=== PATIENT | male | born 1970 | race Caucasian/White ===

== ENCOUNTER 2022-03-07 18:02 | Outpatient (CLI) | payer MEDICARE, OTHER, SELFPAY ==
[2022-03-07 19:16] LABS: Basophils % 0.4 %; Eosinophils % 0.4 %; Hematocrit 41.4 % (42.0-52.0); Hemoglobin 13.2 g/dL (11.7-16.6); Lymphocytes # 1.4 10^3/uL (0.8-4.8); Lymphocytes % 13.9 %; Mean Corpuscular HGB Conc 31.9 g/dL (30.0-36.0); Mean Corpuscular Hemoglobin 31.4 pg (28.0-34.0); Mean Corpuscular Volume 98.3 fl (80-94); Monocytes # 1.1 10^3/uL (0.2-0.9); Monocytes % 10.8 %; Neutrophils # 7.55 10^3/uL (1.8-7.7); Neutrophils % 73.7 %; Nucleated Red Blood Cells % 0 %; Platelet Count 238 10^3/cmm (130-400); Red Blood Count 4.21 10^6/uL (4.1-5.3); White Blood Count 10.2 10^3/uL (4.0-10.0)
[2022-03-07 19:27] LABS: INR 1.26 (0.8-1.2)
[2022-03-07 19:57] LABS: Alanine Aminotransferase 22 U/L (0-41); Albumin Level 2.9 g/dL (3.5-5.2); Alkaline Phosphatase 123 IU/L (40-130); Anion Gap 17.4 (5-19); Aspartate Amino Transferase 25 U/L (0-40); Blood Urea Nitrogen 14 mg/dL (6-20); Calcium 7.9 mg/dL (8.5-10.5); Carbon Dioxide 25 mmol/L (22-29); Chloride 99 mmol/L (98-107); Globulin 3.9 g/dL (1.3-4.6); Glomerular Filtration Rate 119.4 mL/min (90-130); Glucose 152 mg/dL (65-115); Osmolality Calculated 289 mOsm/kg (285-295); Potassium 3.4 mmol/L (3.5-5.1); Sodium 138 mmol/L (136-145); Total Bilirubin 0.2 mg/dL (0.15-1.2); Total Protein 6.8 g/dL (6.6-8.7)
== END 2022-03-07 18:03 | disposition home or self-care (01) ==
LOC: LAB 18:07
PROVIDERS: Family Provider Family Medicine; Visit Provider Family Medicine
DX: I82.402 Acute embolism and thrombosis of unspecified deep veins of left lower extremity (principal)
CPT/HCPCS: 80053; 85025; 85610

== ENCOUNTER 2022-03-28 04:57 | Outpatient (CLI) | payer MEDICARE, SELFPAY ==
[2022-03-28 05:57] LABS: Phenytoin Dilantin 3.5 ug/mL (10-20)
== END 2022-03-28 04:58 | disposition home or self-care (01) ==
PROVIDERS: Family Provider Family Medicine; Visit Provider Family Medicine
DX: Z79.899 Other long term (current) drug therapy (principal)
CPT/HCPCS: 80185

== ENCOUNTER 2022-05-28 12:16 | Outpatient (CLI) | payer MEDICARE, SELFPAY ==
[2022-05-28 13:11] LABS: INR 1.72 (0.8-1.2)
== END 2022-05-28 12:17 | disposition home or self-care (01) ==
PROVIDERS: Visit Provider Family Medicine
DX: I82.491 Acute embolism and thrombosis of other specified deep vein of right lower extremity (principal)
CPT/HCPCS: 85610

== ENCOUNTER 2022-06-30 12:52 | Inpatient (IN) | payer MEDICARE, MEDICAID, SELFPAY ==
[2022-06-30] VITALS (10 sets, daily range): BP systolic 98–99; BP diastolic 64–80; PULSE 75–85; RESP 13–28; TEMP 37–37.1; O2SAT 93–97; BMI 33.0
--- NOTE | 2022-06-30 13:11 | XRR_ITS ---
PROCEDURE INFORMATION: Exam: XR Chest Exam date and time: 06/30/2022 1:57 PM Age: 51 years old Clinical indication: Dyspnea; Prior surgery; Surgery type: Open heart; PT unable to communicate HX; Additional info: Dyspnea/cough TECHNIQUE: Imaging protocol: Radiologic exam of the chest. Views: 1 view. COMPARISON: CT abdomen pelvis w con* [id number] 08/27/2019 1:54 PM FINDINGS: Lungs: Hazy bilateral pulmonary opacities. Pleural spaces: Blunting of the costophrenic angles is suggestive of small pleural effusions. Heart/Mediastinum: Cardiomegaly. Bones/joints: There are posterior sternotomy changes and postoperative changes overlying the mediastinum. Superior most sternal suture is discontinuous. XR/XR chest 1V portable [id number] IMPRESSION: 1. Blunting of the costophrenic angles is suggestive of small pleural effusions. In combination with cardiomegaly, findings are concerning for congestive heart failure. 2. There are hazy bilateral pulmonary opacities. Differential includes pulmonary edema and/or pneumonia.
[2022-06-30 13:19] LABS: Basophils % 0.3 %; Eosinophils # 0.1 10^3/uL (0.0-0.8); Eosinophils % 0.6 %; Hemoglobin 13.9 g/dL (11.7-16.6); Lymphocytes # 0.7 10^3/uL (0.8-4.8); Lymphocytes % 6.7 %; Mean Corpuscular HGB Conc 32.3 g/dL (30.0-36.0); Mean Corpuscular Hemoglobin 33.2 pg (28.0-34.0); Mean Corpuscular Volume 102.6 fl (80-94); Mean Platelet Volume 9.6 fL (7.4-10.4); Monocytes # 0.8 10^3/uL (0.2-0.9); Monocytes % 8.2 %; Neutrophils # 8.45 10^3/uL (1.8-7.7); Neutrophils % 83.6 %; Nucleated Red Blood Cells % 0 %; Platelet Count 260 10^3/cmm (130-400); Red Blood Count 4.19 10^6/uL (4.1-5.3); Red Cell Distribution Width 14.8 % (12.1-15.1); White Blood Count 10.1 10^3/uL (4.0-10.0)
--- NOTE | 2022-06-30 13:46 | ED_ITS ---
HPI - General Adult General: Chief complaint: General Medical Stated complaint: INCREASING WEAKNESS AND LETHARGY Time Seen by Provider: 06/30/22 13:00 Source: family Mode of arrival: EMS History of Present Illness: 51-year-old male with a history of Down's syndrome and previous mitral valve prolapse with a subsequent mitral valve prosthesis several years ago. Over the last 10 months. He presents today with respiratory distress he is nonresponsive. Nonresponsive portion is been something that is ongoing. Not requiring more oxygen than he had been. He lives at the half-way. Coarse breath sounds and is very lethargic. Onset (ago): day(s) Severity: moderate Relieving factors: none Exacerbating factors: none Associated symptoms: Reports short of breath Treatments prior to arrival: other (Oxygen) Review of Systems General: Reports: ROS unobtainable due to mental status PFS ED PFSH: Medical History Dementia Down syndrome H/O deep venous thrombosis Heart failure History of stroke Non-verbal learning disorder Normal pressure hydrocephalus Seizures Surgical History H/O aortic valve replacement with porcine valve History of coronary artery bypass graft x 1 Physical Exam HENMT: COMMON NORMALS: atraumatic HEAD & SCALP: atraumatic Resp: AUSCULTATION: crackles, rhonchi and wheezes Cardio: COMMON NORMALS: regular rate, regular rhythm and No murmurs present (Cardio) RATE: regular rate RHYTHM: regular rhythm GI: COMMON NORMALS: Soft to palpation and No hepatosplenomegaly present AUSCULTATION: Yes normoactive bowel sounds PALPATION: Yes Soft to palpation, No Tenderness to palpation present (GI), No Guarding due to palpation present (GI) and Yes No hepatosplenomegaly present Extremity: GENERAL: Yes edema Course Vital Signs: Vital signs: Vital Signs Temperature 103.6 F H 07/08/22 20:00 Pulse Rate 0 L 07/08/22 23:00 Respiratory Rate 0 L 07/08/22 23:00 Blood Pressure 95/41 07/08/22 23:00 Pulse Oximetry 83 L 07/08/22 22:00 Oxygen Delivery Me thod 07/08/22 16:00 Oxygen Flow Rate 10 07/08/22 16:00 Fraction of Inspir ed Oxygen 45 07/03/22 11:38 MDM - General Adult Medical Decision Making Suspect patient has aspiration pneumonia on top of worsening congestive heart failure. At this point I think his prognosis is very poor and herminia discussion of the family. They would like us to try to initiate some basic interventions to see if he improves. However if he does not begin to show improvement they are willing to reconsider and look at changing him to a DO NOT RESUSCITATE. Discussed with hospitalist orders written Medical Records I reviewed the patient's medical records. Lab Data I reviewed the patient's lab results. : 07/05/22 04:30 07/08/22 04:05 Radiology Impressions Chest/Abdomen/Pelvis CT 07/01/22 12:05 IMPRESSION: 1. Bilateral pneumonia. 2. There is mucous in the trachea and right mainstem bronchus. IMPRESSION: 1. The bladder wall is thickened. This is nonspecific and may represent bladder outlet obstruction, inflammation or infection. Neoplastic process is included in the differential. 2. Colonic constipation is present. Chest X-Ray 07/04/22 12:01 IMPRESSION: 1. Diffuse increasing consolidation throughout the LEFT lung consistent with pneumonia. 2. Cardiomegaly. 3. Very small bilateral pleural effusions. Laboratory Results WBC 10.1 10^3/uL (4.0-10.0) H 06/30/22 13:15 RBC 4.19 10^6/uL (4.1-5.3) 06/30/22 13:15 Hgb 13.9 g/dL (11.7-16.6) 06/30/22 13:15 Hct 43.0 % (42.0-52.0) 06/30/22 13:15 MCV 102.6 fl (80-94) H 06/30/22 13:15 MCH 33.2 pg (28.0-34.0) 06/30/22 13:15 MCHC 32.3 g/dL (30.0-36.0) 06/30/22 13:15 RDW 14.8 % (12.1-15.1) 06/30/22 13:15 Plt Count 260 10^3/cmm (130-400) 06/30/22 13:15 MPV 9.6 fL (7.4-10.4) 06/30/22 13:15 Neut % (Auto) 83.6 % 06/30/22 13:15 Lymph % (Auto) 6.7 % 06/30/22 13:15 [place] % (Auto) 8.2 % 06/30/22 13:15 Eos % (Auto) 0.6 % 06/30/22 13:15 Baso % (Auto) 0.3 % 06/30/22 13:15 Neut # (Auto) 8.45 10^3/uL (1.8-7.7) H 06/30/22 13:15 Lymph # (Auto) 0.7 10^3/uL (0.8-4.8) L 06/30/22 13:15 [place] # (Auto) 0.8 10^3/uL (0.2-0.9) 06/30/22 13:15 Eos # (Auto) 0.1 10^3/uL (0.0-0.8) 06/30/22 13:15 Baso # (Auto) 0.0 10^3/uL (0.0-0.1) 06/30/22 13:15 Nucleated RBC % (auto) 0 % 06/30/22 13:15 Nucleated RBCs # 0.0 /100WBC 06/30/22 13:15 PT 31.50 SECONDS (12.1-14.9) H 06/30/22 13:15 INR 3.01 (0.8-1.2) H 06/30/22 13:15 Sodium 140 mmol/L (136-145) 06/30/22 13:15 Potassium 3.7 mmol/L (3.5-5.1) 06/30/22 13:15 Chloride 100 mmol/L (98-107) 06/30/22 13:15 Carbon Dioxide 28 mmol/L (22-29) 06/30/22 13:15 Anion Gap 15.7 (5-19) 06/30/22 13:15 BUN 8 mg/dL (6-20) 06/30/22 13:15 Creatinine 0.7 mg/dL (0.7-1.2) 06/30/22 13:15 GFR Calculation 119.4 mL/min (90-130) 06/30/22 13:15 Glucose 106 mg/dL (65-115) 06/30/22 13:15 Calculated Osmolality 289 mOsm/kg (285-295) 06/30/22 13:15 Calcium 8.5 mg/dL (8.5-10.5) 06/30/22 13:15 Total Bilirubin 0.3 mg/dL (0.15-1.2) 06/30/22 13:15 AST 15 U/L (0-40) 06/30/22 13:15 ALT 11 U/L (0-41) 06/30/22 13:15 Alkaline Phosphatase 96 U/L (40-130) 06/30/22 13:15 NT-Pro-B Natriuret Pep 2092 pg/mL (0-125) H 06/30/22 13:15 Total Protein 6.7 g/dL (6.6-8.7) 06/30/22 13:15 Albumin 2.9 g/dL (3.5-5.2) L 06/30/22 13:15 Globulin 3.8 g/dL (1.3-4.6) 06/30/22 13:15 TSH 4.07 uIU/mL (0.27-4.20) 06/30/22 13:15 Urine Color Yellow (Yellow) 06/30/22 13:58 Urine Appearance Clear (CLEAR) 06/30/22 13:58 Urine pH 5 (5-7) 06/30/22 13:58 Ur Specific [place] 1.015 (1.005-1.030) 06/30/22 13:58 Urine Protein Neg (Negative) 06/30/22 13:58 Urine Glucose (UA) Norm (Normal) 06/30/22 13:58 Urine Ketones Negative (Negative) 06/30/22 13:58 Urine Blood Neg (Negative) 06/30/22 13:58 Urine Nitrate Negative (Negative) 06/30/22 13:58 Urine Bilirubin Neg (Negative) 06/30/22 13:58 Urine Urobilinogen Norm mg/dL (Negative) 06/30/22 13:58 Ur Leukocyte Esterase Negative (Negative) 06/30/22 13:58 Phenytoin 15.5 ug/mL (10-20) 06/30/22 13:15 Discharge Plan Discharge Patient Disposition: Admitted As Inpatient Admit Provider: Noemí,Lenora Clinical Impression: Heart failure, Down syndrome, Pneumonia Condition: Fair Coding Level of Care Code ED Pipe Covering Molder for Ammy Arriaga
[2022-06-30 13:53] LABS: Phenytoin Dilantin 15.5 ug/mL (10-20)
[2022-06-30 14:06] LABS: Add Urine Microscopic? NO; Charge for UA Resulting for Rev
[2022-06-30 14:08] LABS: Bilirubin Urine Neg (Negative); Blood Urine Neg (Negative); Glucose Urine UA Norm (Normal); Ketones Urine Negative (Negative); Leukocyte Esterase Urine Negative (Negative); Nitrate Urine Negative (Negative); Protein Urine Neg (Negative); Specific Gravity, Urine 1.015 (1.005-1.030); Urine Appearance Clear (CLEAR); Urine Color Yellow (Yellow); Urobilinogen Urine Norm (Negative); pH Urine 5 (5-7)
[2022-06-30 14:14] LABS: Alanine Aminotransferase 11 U/L (0-41); Albumin Level 2.9 g/dL (3.5-5.2); Alkaline Phosphatase 96 U/L (40-130); Anion Gap 15.7 (5-19); Aspartate Amino Transferase 15 U/L (0-40); Blood Urea Nitrogen 8 mg/dL (6-20); Calcium 8.5 mg/dL (8.5-10.5); Carbon Dioxide 28 mmol/L (22-29); Chloride 100 mmol/L (98-107); Globulin 3.8 g/dL (1.3-4.6); Glomerular Filtration Rate 119.4 mL/min (90-130); Glucose 106 mg/dL (65-115); NT Pro B Type Natriuretic Pept 2092 pg/mL (0-125); Osmolality Calculated 289 mOsm/kg (285-295); Potassium 3.7 mmol/L (3.5-5.1); Sodium 140 mmol/L (136-145); Total Bilirubin 0.3 mg/dL (0.15-1.2); Total Protein 6.7 g/dL (6.6-8.7)
[2022-06-30 14:17] LABS: INR 3.01 (0.8-1.2)
--- NOTE | 2022-06-30 14:40 | USCV_ITS ---
Abdulkadir Hill Age: 51 Gender: M : 1970 Exam Date: 06/30/2022 14:58 Ordering Phys: Abdulkadir Marte DO Technologist: Hari Moreno Exam Location: [facility] [place] Indication: Congestive heart failure BP: 99 / 64 HR: 88 Rhythm: Sinus Technical Quality: Adequate MEASUREMENTS (Male / Female) Normal Values 2D ECHO LV Diastolic Diameter PLAX 4.4 cm 4.2 - 5.9 / 3.9 - 5.3 cm LV Systolic Diameter PLAX 4.0 cm IVS Diastolic Thickness 1.0 cm 0.6 - 1.0 / 0.6 - 0.9 cm IVS Systolic Thickness 1.1 cm LVPW Diastolic Thickness 1.1 cm 0.6 - 1.0 / 0.6 - 0.9 cm LVPW Systolic Thickness 1.0 cm LVOT Diameter 2.1 cm LV Ejection Fraction 2D Teich 18.4 % LV Ejection Fraction MOD 2C 43.3 % LV Ejection Fraction 2C AL 44.4 % LA Diameter 3.6 cm IVC Diameter 1.1 cm M-MODE Aortic Annulus Diameter 3.1 cm LA Ao Ratio MM 1.2 DOPPLER AV Peak Velocity 248.5 cm/s LVOT Peak Velocity 91.0 cm/s AV Area Cont Eq vti 1.3 cm squared AV Area Cont Eq pk 1.3 cm squared MV Area PHT 5.0 cm squared Mitral E to A Ratio 0.8 MV E' Velocity 48.5 cm/s Mitral E to MV E' Ratio 20.8 Mitral E to LV E' Lateral Ratio 18.0 Mitral E to LV E' Septal Ratio 24.8 TR Peak Velocity 145.0 cm/s TR Peak Gradient 8.4 mmHg TV Peak E Velocity 80.0 cm/s Right Atrial Pressure 3.0 mmHg Pulmonary Artery Systolic Pressu 11.4 mmHg PV Peak Velocity 146.0 cm/s RV Acceleration Time 0.2 s FINDINGS Left Ventricle Normal left ventricular cavity size. Severely decreased left ventricular systolic function. Left ventricular ejection fraction is estimated at 20-25 %. Severe global hypokinesis with some regional variation. Abnormal diastolic function. Abnormal (paradoxical) septal motion consistent with postoperative status. Right Ventricle Normal right ventricular size and systolic function. Right Atrium Normal right atrial size. Left Atrium Left atrium not well visualized. Mitral Valve Mildly thickened mitral valve. Aortic Valve Bioprosthetic aortic valve well seated and normal functioning. Peak velocity 2 m/sec, mean gradient 7 mm Hg, NOHEMY 1.9 cm2. No significant valvular and perivalvualr regurgitation. Tricuspid Valve Structurally normal tricuspid valve. No tricuspid valve stenosis. Trace tricuspid valve regurgitation. Pulmonic Valve Pulmonic valve not well visualized. No pulmonary valve stenosis. Pericardium No pericardial effusion. Aorta Aorta not well visualized. IVC Inferior vena cava not visualized. CONCLUSIONS 1. This is a technically difficult study. 2. Normal left ventricular cavity size. Severely decreased left ventricular systolic function. Left ventricular ejection fraction is estimated at 20-25 %. Severe global hypokinesis with some regional variation. Abnormal diastolic function. 3. Bioprosthetic aortic valve well seated and normal functioning. Peak velocity 2 m/sec, mean gradient 7 mm Hg, NOHEMY 1.9 cm2. No significant valvular and perivalvualr regurgitation. 4. Normal right ventricular size and systolic function. Tea Stark MD (Electronically Signed) Final Date: 30 June 2022 19:22 S
--- NOTE | 2022-06-30 14:41 | PM.HP ---
Providers/Chief Complaint Primary Care Provider: Jeison Lopez MD Chief Complaint: INCREASING WEAKNESS AND LETHARGY History of Present Illness Abdulkadir Hill is a 51 year old male with past medical history of Down syndrome, bioprosthetic aortic valve replacement 2004, stroke presented to the hospital today for fci for increasing lethargy weakness poor oral intake, he is getting more short of breath and now requiring 3 L of oxygen. History is obtained from both parents. Present at bedside. He states that he lives in a fci. He was hospitalized at [facility] in September 2021 for normal pressure hydrocephalus and he had a lumbar puncture. After lumbar puncture they state that he remained sedated for 30 hours. He did not wake up. Ever since that time he has become nonverbal and is a complete assist with Pina lift. They believe he might of had a stroke during that time. Patient remained in ICU for greater than 7 days during the hospital stay. He states that he has a history of heart failure as well and that he is on Lasix however do not know the degree of heart failure. They state usually whenever you bring a spoon Close to his mouth he will open his mouth and eat and eventually swallow the bite however lately has not been doing that either. They also noticed that when they tried to give him a water sponge today to get his labs he almost started coughing and choking on the water. They said that for the last few weeks he has been deteriorating. Prior to his hospitalization in September he was working, had a job, was completely independent. Denies nausea, vomiting, diarrhea, constipation. Patient is unable to provide any history and is currently on BiPAP. He cannot follow any commands and does not respond to any questions. ER course: BNP 2091, Lasix 60x1 given. Chest x-ray shows cardiomegaly and significant pulm vascular congestion. Patient placed on 3 L nasal cannula and subsequently started on BiPAP. ER doctor also consulted cardiology in ER. Records have been requested from [facility]. Medications/Allergies Home Medications Medication Instructions Recorded Confirmed Last Taken Type acetaminophen 325 mg tablet 650 mg PO Q6H PRN Pain 06/30/22 06/30/22 Unknown History (Tylenol) bisacodyl 10 mg rectal suppository 10 mg FL DAILY PRN Constipation 06/30/22 06/30/22 Unknown History (Dulcolax (bisacodyl)) cyanocobalamin (vitamin B-12) 1,000 mcg PO DAILY 06/30/22 06/30/22 06/30/22 History 1,000 mcg tablet furosemide 40 mg tablet (Lasix) 40 mg PO DAILY 06/30/22 06/30/22 06/30/22 History lorazepam 2 mg/mL oral concentrate 1 mg PO Q3H PRN Agitation 06/30/22 06/30/22 Unknown History magnesium hydroxide 400 mg/5 mL 30 ml PO DAILY PRN Constipation 06/30/22 06/30/22 Unknown History oral suspension (Milk of Magnesia) melatonin 3 mg tablet 1.5 mg PO BEDTIME 06/30/22 06/30/22 06/29/22 History ondansetron 4 mg disintegrating 4 mg PO Q4H PRN Nausea 06/30/22 06/30/22 Unknown History tablet phenytoin 50 mg chewable tablet 150 mg PO BID 06/30/22 06/30/22 06/30/22 History (Dilantin Infatabs) potassium chloride 10 mEq 10 meq PO BID 06/30/22 06/30/22 06/30/22 History tablet,extended release psyllium husk (with sugar) 3 1 tbsp PO DAILY 06/30/22 06/30/22 06/30/22 History gram/7 gram oral powder (Metamucil (with sugar)) warfarin 1 mg tablet See Rx Instructions .Route .COMPLEX 06/30/22 06/30/22 06/29/22 History Allergies Allergy/AdvReac Type Severity Reaction Status Date / Time morphine Allergy Unknown Unknown Verified 06/30/22 16:50 Vitals/I&O/Wt Last Vital Signs Temp 98.7 F 06/30/22 12:55 Pulse 83 06/30/22 13:07 Resp 17 06/30/22 13:07 BP 99/64 06/30/22 13:07 Pulse Ox 94 06/30/22 13:07 O2 Del Method 06/30/22 13:07 O2 Flow Rate 3 06/30/22 13:07 Physical Exam Narrative: General: Lethargic appearing patient, patient seen sitting up in bed on BiPAP mask staring at his mother. Patient does not give any responses. Does not follow any commands. HEENT: Normocephalic, atraumatic, EOMI, breathing comfortably on BiPAP. No acute distress apparently noted, no use of accessory muscles Cardio: Regular rate rhythm, normal S1-S2, JVD elevated Respiratory: Crackles bilaterally at bases and rhonchi throughout lung [place] GI: Abdomen soft, nontender, nondistended, bowel sounds + Extremities: No lower extremity edema present Data : 06/30/22 13:15 06/30/22 13:15 A&P Assessment and plan (1) Heart failure: Status: Acute (2) Seizures: Status: Acute (3) Normal pressure hydrocephalus: Status: Acute (4) DNR (do not resuscitate): Status: Acute (5) At risk for aspiration: Status: Acute (6) History of stroke: Status: Acute (7) H/O aortic valve replacement with porcine valve: Status: Acute (8) Non-verbal learning disorder: Status: Acute (9) Down syndrome: Status: Acute Plan #Chronic congestive heart failure exacerbation, unsure if systolic versus diastolic #History of Down syndrome #History cerebrovascular accident #History of seizures #Total assist, Pina lift #Nonverbal #Aspiration risk ? Patient appears to be in heart failure exacerbation. He was given 60 Lasix IV in ER. ? We will continue Lasix 20 IV twice daily today and escalate to Lasix 40 IV daily starting tomorrow ? Blood pressure borderline soft 90 over 70s. ? Check echo ? Continue warfarin. INR 3 today. Consult pharmacy to dose ? Continue patient on BiPAP for now ? Cardiology consulted from ER. Awaiting recommendations ? Keep n.p.o. for now. Aspiration precautions ? Patient on phenytoin orally. Will discuss with pharmacy to find IV dosing regimen. ? We will hold potassium, will hold lorazepam at this point. ? Check troponin series DNR/DNI Both parents present at bedside. Discussed with him extensively in detail Prognosis remains poor Have requested records from [facility] Attestations Medical Necessity Statement*: Patient will require greater than 2-day hospitalization for management of heart failure exacerbation. Coding Level of Care Code Acute Heating And Refrigeration Inspector for Chg Fwd Diagnoses Heart failure I50.9 Seizures R56.9 Normal pressure hydrocephalus G91.2 DNR (do not resuscitate) Z66 At risk for aspiration Z91.89 History of stroke Z86.73 H/O aortic valve replacement with porcine valve Z95.3 Non-verbal learning disorder F81.89 Down syndrome Q90.9
[2022-06-30] MEDS: FUROsemide 10 mg/mL SDV 10mL 60 MG IVP (14:43)
[2022-06-30] MEDS: piperacillin-tazobactam 3.375 GM in sodium chloride 0.9% (plus) 50 ML IV ×2 (15:20→23:43)
[2022-06-30 16:21] LABS: Thyroid Stimulating Hormone 4.07 uIU/mL (0.27-4.20)
--- NOTE | 2022-06-30 17:54 | PC.NURSE ---
VITALS PRINTED AND PLACED IN CHART
[2022-06-30] MEDS: pantoprazole 40 mg SDV IVP (18:33)
[2022-06-30] MEDS: FUROsemide 10 mg/mL SDV 2mL 20 MG IVP (18:33)
[2022-06-30] MEDS: heparin 5,000 unit/mL INJ 1 mL 5000 UNIT SUBCUT (18:33)
--- NOTE | 2022-06-30 19:38 | PC.NURSE ---
received from er via stretcher at 1800.report received.sr on monitor.pt opens eyes to name..but does not speak.hx down's syndrome with functional decline since august according to pt's parents.sr on monitor.vss.placed on bipap per rt at 14/8 and 50%.
[2022-06-30 20:24] LABS: Troponin(5th) Baseline 37 ng/L (0-15)
--- NOTE | 2022-06-30 20:31 | PM.MISC ---
Miscellaneous Note Note: Admitting physician notified me about the admitting diagnosis I have Called pharmacy to convert p.o. Dilantin dose to IV He takes 300 mg of Dilantin and a day which is equivalent to 100 mg of IV Dilantin, will give him once a day He cannot take anything p.o. we will switch his Coumadin to therapeutic dose of Lovenox His rest of the medications are either IV or MI Did update his nurse Inga overnight
--- NOTE | 2022-06-30 20:35 | ECG_ITS ---
[facility] Test Date: 2022-06-30 Pat Name: Abdulkadir Hill Department: Room: 276 Gender: Male Java Tech Lead: : 1970 Requested By: Lenora Dowd Order Number: [id number] Jeff MD: Tea Stark M.D. Measurements Intervals [place] Rate: 78 P: 21 TX: 152 QRS: 41 QRSD: 159 T: 240 QT: 441 QTc: 505 Interpretive Statements SINUS RHYTHM WITH FREQUENT VENTRICULAR PREMATURE COMPLEXES LEFT BUNDLE BRANCH BLOCK [120+ ms QRS DURATION, 80+ ms Q/S IN V1/V2, 85+ ms R IN I/aVL/V5/V6] No previous ECG available for comparison Electronically Signed On 07-01-2022 13:05:38 CDT by Tea Stark M.D. [id number]
[2022-06-30] MEDS: enoxaparin 80 mg/0.8 mL Syringe 70 MG SUBCUT (21:26)
[2022-06-30 21:40] LABS: Lactate (Lactic Acid level) 1.4 mmol/L (0.5-2.2); Troponin 5 2HR 38.03 ng/L (0-15)
[2022-06-30 22:01] LABS: Troponin 5 2HR Delta 1.03 ABS# (0-10)
[2022-07-01] VITALS (18 sets, daily range): BP systolic 98–109; BP diastolic 69–82; PULSE 76–90; RESP 13–27; TEMP 36.6–38; O2SAT 91–97
--- NOTE | 2022-07-01 01:47 | ECG_ITS ---
[facility] Test Date: 2022-07-01 Pat Name: Abdulkadir Hill Department: Room: 276 Gender: Male Tennis Centre Manager: : 1970 Requested By: Lenora Dowd Order Number: [id number] Aguilar MD: Tea Stark M.D. Measurements Intervals [place] Rate: 76 P: 20 OR: 157 QRS: 43 QRSD: 161 T: 239 QT: 454 QTc: 512 Interpretive Statements SINUS RHYTHM WITH FREQUENT VENTRICULAR PREMATURE COMPLEXES LEFT BUNDLE BRANCH BLOCK [120+ ms QRS DURATION, 80+ ms Q/S IN V1/V2, 85+ ms R IN I/aVL/V5/V6] Compared to ECG 06/30/2022 20:35:32 No significant changes Electronically Signed On 07-01-2022 13:12:36 CDT by Tea Stark M.D. [id number]
[2022-07-01 02:09] LABS: Basophils % 0.3 %; Eosinophils # 0.1 10^3/uL (0.0-0.8); Eosinophils % 0.8 %; Hematocrit 38.6 % (42.0-52.0); Hemoglobin 12.7 g/dL (11.7-16.6); Lymphocytes # 0.9 10^3/uL (0.8-4.8); Lymphocytes % 12.3 %; Mean Corpuscular HGB Conc 32.9 g/dL (30.0-36.0); Mean Corpuscular Hemoglobin 33.8 pg (28.0-34.0); Mean Corpuscular Volume 102.7 fl (80-94); Mean Platelet Volume 9.4 fL (7.4-10.4); Monocytes % 12.7 %; Neutrophils # 5.49 10^3/uL (1.8-7.7); Neutrophils % 73.4 %; Nucleated Red Blood Cells % 0 %; Platelet Count 237 10^3/cmm (130-400); Red Blood Count 3.76 10^6/uL (4.1-5.3); Red Cell Distribution Width 14.8 % (12.1-15.1); White Blood Count 7.5 10^3/uL (4.0-10.0)
[2022-07-01 02:32] LABS: Troponin 5 6HR 52.72 ng/L (0-15)
[2022-07-01 02:33] LABS: Alanine Aminotransferase 10 U/L (0-41); Alkaline Phosphatase 94 U/L (40-130); Anion Gap 13.4 (5-19); Aspartate Amino Transferase 12 U/L (0-40); Blood Urea Nitrogen 11 mg/dL (6-20); Calcium 8.6 mg/dL (8.5-10.5); Carbon Dioxide 28 mmol/L (22-29); Chloride 101 mmol/L (98-107); Globulin 3.8 g/dL (1.3-4.6); Glomerular Filtration Rate 119.4 mL/min (90-130); Glucose 103 mg/dL (65-115); Magnesium 1.8 mg/dL (1.7-2.3); Osmolality Calculated 288 mOsm/kg (285-295); Potassium 3.4 mmol/L (3.5-5.1); Sodium 139 mmol/L (136-145); Total Bilirubin 0.3 mg/dL (0.15-1.2); Total Protein 6.8 g/dL (6.6-8.7)
[2022-07-01 02:49] LABS: INR 3.87 (0.8-1.2)
[2022-07-01 02:51] LABS: Troponin 5 6HR Delta 15.72 ng/L (0-12)
--- NOTE | 2022-07-01 08:00 | XRR_ITS ---
PROCEDURE INFORMATION: Exam: XR Chest Exam date and time: 07/01/2022 1:02 PM Age: 51 years old Clinical indication: Dyspnea; Additional info: F/u TECHNIQUE: Imaging protocol: Radiologic exam of the chest. Views: 1 view. COMPARISON: CR XR chest 1V portable [id number] 06/30/2022 1:57 PM FINDINGS: Lungs: Multifocal bilateral pulmonary opacities appear improved in the left lung when compared to the prior study however appear worsened at the right lung base when compared to the prior study. Pleural spaces: Minimal blunting of the right costophrenic angle raises concern for a small pleural effusion. Heart/Mediastinum: Unremarkable. No cardiomegaly. Bones/joints: Post sternotomy changes are stable when compared to the prior study. XR/XR chest 1V portable [id number] IMPRESSION: Multifocal bilateral pulmonary opacities appear improved in the left lung however appear worsened at the right lung base when compared to the prior study.
[2022-07-01 08:33] LABS: ABG PCO2 40.9 mmHg (35-45); ABG PH Result 7.48 (7.35-7.45); Alveolar-Arterial Oxygen Gradi 50.6 mmHg (5-10); Arterial Blood Gas Hematocrit 44.5 % (42-52); Blood Gas Allen Test Pos; Blood Gas Operator Identificat MONRO; Blood Gas Sample Site Radial, left; Blood Gas Sample Type Arterial; Carboxyhemoglobin 1.2 %THgb (0.4-20.1); HCO3 ABG 30.2 mmol/L (22-26); HGB O2 Sat 91.4 % (95-100); Ionized Calcium Level - ABG 1.2 mmol/L (1.1-1.4); Methemoglobin 0.9 % (0.4-1.5); Oxygen Device BIPAP; Oxygen Saturation ABG 93.4; PO2 ABG 59.7 mmHg (80.0-100.0); Potassium Level - ABG 3.4 mmol/L (3.5-5.0); Total Hemoglobin 14.5 g/dL (14-18)
--- NOTE | 2022-07-01 08:40 | P.CONIM_ITS ---
Providers/Reason For Consult Consulting Physician/Specialty*: Dr. Stark, Cardiology Reason for Consult*: CHF Attending Physician: Lenora Dowd MD Primary Care Provider: Jeison Lopez MD History of Present Illness History of Present Illness Abdulkadir Hill is a 51 year old male with past medical history of Down syndrome, bioprosthetic aortic valve replacement 2004, CAD s/p single vessel CABG in 2004, HFrEF (LVEF=38% by TTE 10/2020), h/o LLE DVT, h/o seizure, non verbal and h/o s troke presented to the hospital today [facility] [place] [facility] for increasing lethargy, weakness poor oral intake (unusual for him) and shortness of breath.? History obtained from both parents and chart.? He was hospitalized at [facility] in September 2021 for normal pressure hydrocephalus and he had a lumbar puncture.? After lumbar puncture, he remained sedated for 30 hours, he has become nonverbal and is a complete assist with Pina lift.? They also noticed that he chocked on water sponge and started coughing. Patient is unable to provide any history and is currently on HFNC.? He cannot follow any commands and does not respond to any questions. IN ER course: Lasix 60x1 was given.? Chest x-ray shows cardiomegaly and significant pulm vascular congestion.? Records have been requested from [facility]. His activity therapy teacher is Dr. Rawls at [facility] and was last seen there 2 years back. Review of Systems General: Reports: ROS unobtainable due to medical condition and ROS unobtainable due to mental status Medications/Allergies Home Medications Medication Instructions Recorded Confirmed Last Taken Type acetaminophen 325 mg tablet 650 mg PO Q6H PRN Pain 06/30/22 06/30/22 Unknown History (Tylenol) bisacodyl 10 mg rectal suppository 10 mg NC DAILY PRN Constipation 06/30/22 06/30/22 Unknown History (Dulcolax (bisacodyl)) cyanocobalamin (vitamin B-12) 1,000 mcg PO DAILY 06/30/22 06/30/22 06/30/22 History 1,000 mcg tablet furosemide 40 mg tablet (Lasix) 40 mg PO DAILY 06/30/22 06/30/22 06/30/22 History lorazepam 2 mg/mL oral concentrate 1 mg PO Q3H PRN Agitation 06/30/22 06/30/22 Unknown History magnesium hydroxide 400 mg/5 mL 30 ml PO DAILY PRN Constipation 06/30/22 06/30/22 Unknown History oral suspension (Milk of Magnesia) melatonin 3 mg tablet 1.5 mg PO BEDTIME 06/30/22 06/30/22 06/29/22 History ondansetron 4 mg disintegrating 4 mg PO Q4H PRN Nausea 06/30/22 06/30/22 Unknown History tablet phenytoin 50 mg chewable tablet 150 mg PO BID 06/30/22 06/30/22 06/30/22 History (Dilantin Infatabs) potassium chloride 10 mEq 10 meq PO BID 06/30/22 06/30/22 06/30/22 History tablet,extended release psyllium husk (with sugar) 3 1 tbsp PO DAILY 06/30/22 06/30/22 06/30/22 History gram/7 gram oral powder (Metamucil (with sugar)) warfarin 1 mg tablet See Rx Instructions .Route .COMPLEX 06/30/22 06/30/22 06/29/22 History Allergies Allergy/AdvReac Type Severity Reaction Status Date / Time morphine Allergy Unknown Unknown Verified 06/30/22 16:50 Current Medications Generic Name Dose Route Start Last Admin Trade Name Lawrenceq PRN Reason Stop Dose Admin Enoxaparin Sodium 70 mg 06/30/22 20:30 06/30/22 21:26 Enoxaparin 80 Mg/0.8 Ml Syringe SUBCUT 70 mg Q12H JAIME Administration Piperacillin Sod/Tazobactam 50 mls @ 12.5 mls/hr 06/30/22 23:00 06/30/22 23: 43 Sod 3.375 gm/ Sodium Chloride IV 12.5 mls/hr Q8H JAIME Administration Protocol Pantoprazole Sodium 40 mg 06/30/22 15:45 06/30/22 18:33 Pantoprazole 40 Mg Sdv IVP 40 mg Q24H JAIME Administration PFSH Acute PFSH: Medical History (Updated 07/01/22 @ 17:04 by Tea Stark MD) Down syndrome H/O deep venous thrombosis Heart failure History of stroke Non-verbal learning disorder Normal pressure hydrocephalus Seizures Surgical History (Updated 07/01/22 @ 17:04 by Tea Stark MD) H/O aortic valve replacement with porcine valve History of coronary artery bypass graft x 1 Vitals/I&O/Wt Last Vital Signs Temp 98.2 F 07/01/22 07:48 Pulse 84 07/01/22 07:48 Resp 20 H 07/01/22 07:48 BP 108/82 07/01/22 07:48 Pulse Ox 97 07/01/22 07:48 O2 Del Method 07/01/22 04:00 O2 Flow Rate 3 06/30/22 20:00 FiO2 45 07/01/22 03:14 06/30/22 07/01/22 07/01/22 22:59 06:59 14:59 Output Total 1050 / 1050 150 / 1200 Balance -1050 / -1050 -150 / -1200 Weight last 48 hrs Weight 158 lb 4 oz Physical Exam Narrative: GENERAL: obese man looking younger than his age HEENT: No pallor or icterus. NECK: Short neck, JVD not appreciated CARDIOVASCULAR SYSTEM: S1-S2 regular. No murmur or gallops. RESPIRATORY SYSTEM: Chest clear to auscultation. No wheezes rhonchi or rubs heard. No use of accessory muscles. ABDOMEN: Soft, nontender and nondistended. Normal bowel sounds present. EXTREMITIES: Trace edema. No signs of chronic venous insufficiency. CARE PROCESS MANAGER: Patient is non verbal, holding hands Urinary Catheter Management: Badillo: Cath Placed During This Visit: yes Reason for Continuing Indwelling Catheter: Accurate Measurement of Urinary Output in Critically Ill Patients Urinary Catheter Date of Insertion: 06/30/22 Data : 07/01/22 02:00 07/01/22 02:00 A&P Assessment and plan (1) Heart failure: HFrEF -continue IV lasix; may need to uptitrate -repeat echo with contrast I had long discussion with patient's parents about patient's current situation. Patient is not able to tolerate PO intake. -They are not in favor of any aggressive procedures and interventions. I agree with that. -Plan for medical management. May use metoprolol 2.5 mg IV q 4-6 hr as tolerated -will f/u on recent records. Status: Acute (2) H/O aortic valve replacement with porcine valve: Status: Acute (3) History of stroke: Status: Acute Plan NSTEMI type 2 in setting of CHF LBBB Frequent PVC's H/o Left Leg DVT in 02/2022: on warfarin H/o CABG x1 in 2004 Down's syndrome Non verbal Poor oral intake Concern for aspiration PNA DNR/DNI Thank you for allowing me to participate in patient's care. Please feel free to call with questions or concerns. Consult Attestations Time Spent in Patient Care: Greater than 35 minutes Coding Level of Care Code Acute Construction Accountant for Ammy Fwd Diagnoses Heart failure I50.9 H/O aortic valve replacement with porcine valve Z95.3 History of stroke Z86.73
--- NOTE | 2022-07-01 08:47 | ECG_ITS ---
[facility] Test Date: 2022-07-01 Pat Name: Abdulkadir Hill Department: Room: 276 Gender: Male Light Bulb Replacer: : 1970 Requested By: Lenora Dowd Order Number: [id number] Jeff MD: Tea Stark M.D. Measurements Intervals [place] Rate: 82 P: 18 W[place]: 158 QRS: 46 QRSD: 155 T: 246 QT: 432 QTc: 506 Interpretive Statements SINUS RHYTHM WITH FREQUENT VENTRICULAR PREMATURE COMPLEXES LEFT BUNDLE BRANCH BLOCK Compared to ECG 07/01/2022 02:17:38 No significant changes Electronically Signed On 07-01-2022 13:03:48 CDT by Tea Stark M.D. [id number]
[2022-07-01] MEDS: enoxaparin 80 mg/0.8 mL Syringe 70 MG SUBCUT (08:52)
[2022-07-01] MEDS: FUROsemide 10 mg/mL SDV 4mL 40 MG IVP ×2 (08:53→23:13)
--- NOTE | 2022-07-01 08:57 | PM.PN ---
Subjective Subjective: Seen this morning. Patient able to open his eyes and squeeze my hand with his left hand. Unable to give any kind of response or follow other commands. EKG this morning showed left bundle branch block which was also present on admission. Urine output 1200 overnight. He is also been hypoxic this AM. Blood gas checked. Started him on AVAPS. Patient was getting agitated with a mask so we will try to do high flow and see if he tolerates. Oxygen saturation did drop to mid 80s initially. Family present at bedside. Delta troponin positive overnight. Lovenox therapeutic dose was added. [facility] records are still not here. I will also request records from [facility] with patient's latest echo that he had there. Follows with Dr. Rawls as his backup engineer. He missed his last appointment however. Vitals/I&O/Wt Last Vital Signs Temp 98.2 F 07/01/22 07:48 Pulse 89 07/01/22 11:26 Resp 24 H 07/01/22 11:26 BP 108/82 07/01/22 07:48 Pulse Ox 96 07/01/22 11:26 O2 Del Method 07/01/22 08:57 O2 Flow Rate 35 07/01/22 11:26 FiO2 55 07/01/22 11:26 06/30/22 07/01/22 07/01/22 22:59 06:59 14:59 Intake Total 102 / 102 Output Total 1050 / 1050 150 / 1200 Balance -1050 / -1050 -150 / -1200 102 / 102 Weight last 48 hrs Weight 71.781 kg Physical Exam Narrative: General: Lethargic appearing patient, patient seen sitting up in bed on BiPAP mask staring at his mother. Patient does not give any responses. Does not follow any commands except he does slightly squeeze my fingers with his left hand.. HEENT: Normocephalic, atraumatic, EOMI, breathing comfortably on BiPAP. No acute distress apparently noted, no use of accessory muscles Cardio: Regular rate rhythm, normal S1-S2, Respiratory: Crackles bilaterally at bases and rhonchi throughout lung sprague GI: Abdomen soft, nontender, nondistended, bowel sounds + Extremities: No lower extremity edema present Urinary Catheter Management: Badillo: Cath Placed During This Visit: yes Reason for Continuing Indwelling Catheter: Accurate Measurement of Urinary Output in Critically Ill Patients Urinary Catheter Date of Insertion: 06/30/22 Data : 07/01/22 02:00 07/01/22 02:00 A&P Assessment and plan (1) Heart failure: Status: Acute (2) Seizures: Status: Acute (3) Normal pressure hydrocephalus: Status: Acute (4) DNR (do not resuscitate): Status: Acute (5) At risk for aspiration: Status: Acute (6) History of stroke: Status: Acute (7) H/O aortic valve replacement with porcine valve: Status: Acute (8) Non-verbal learning disorder: Status: Acute (9) Down syndrome: Status: Acute Plan #Acute on chronic congestive heart failure exacerbation #Left bundle branch block pattern #NSTEMI, type II versus type #Chronically anticoagulated with warfarin #Supratherapeutic INR 3 #History of Down syndrome #History cerebrovascular accident #History of seizures #Total assist, Pina lift #Nonverbal #Aspiration risk #Poor oral intake #Possible aspiration pneumonia ? Patient got total of Lasix 80 IV yesterday. 1200 cc urine output ? Continue diuresis with Lasix 40 IV twice daily starting today. BNP 2091, Procalcitonin 0.9 ? Blood slightly better compared to yesterday one 108/82. Heart rate stable. -Previous echo from October 2021 to [facility] shows EF 38%. Echo done at our hospital does show reduced EF 20 to 25%. Patient probably had a cardiac event in recent past. ? Echo report reviewed: Global hypokinesia and EF 20 to 25% ? Stop warfarin for now. INR supratherapeutic at 3.87. Consult pharmacy to dose. Goal should be 2-3 ? Patient did get Lovenox 70 this a.m. we will discuss with cardiology for further doses. I will hold for now ? Continue patient on high flow versus AVAPS, what ever he can tolerate at this time ? Elevate head of bed ? Aspiration precautions ? Patient is at high risk of aspiration as yesterday in the ER patient was coughing with few drops of water with a wet sponge that was given to him by his mother. ? Patient does desaturate significantly without oxygen support. We will not attempt to feed yet. ? Patient has had oral intake very very decreased in last few weeks. ? Family is not interested in a feeding tube at any point which I believe is reasonable ? Keep n.p.o. for now ? Continue phenytoin IV. Converted by pharmacy ? We will discuss with cardiology for further medications at this time. ? Cardiology consulted. Patient being seen at this time by them. -I will check chest, abdomen, pelvis CT without contrast. WBC 10.1 on admission. Procalcitonin 0.9. Will cover with Zosyn for now. I am suspecting aspiration pneumonitis versus aspiration pneumonia. DNR/DNI Both parents present at bedside. Discussed with them extensively in detail Prognosis remains poor Have requested records from [facility]. Attestations Medical Necessity Statement*: Patient will require greater than 2-day hospitalization for management of heart failure exacerbation, NSTEMI, Coding Level of Care Code Acute Communications Maintainer for Chg Fwd Diagnoses Heart failure I50.9 Seizures R56.9 Normal pressure hydrocephalus G91.2 DNR (do not resuscitate) Z66 At risk for aspiration Z91.89 History of stroke Z86.73 H/O aortic valve replacement with porcine valve Z95.3 Non-verbal learning disorder F81.89 Down syndrome Q90.9
[2022-07-01] MEDS: piperacillin-tazobactam 3.375 GM in sodium chloride 0.9% (plus) 50 ML IV ×3 (09:52→23:13)
--- NOTE | 2022-07-01 12:05 | CTR_ITS ---
PROCEDURE INFORMATION: Exam: CT Chest Without Contrast; Diagnostic Exam date and time: 07/01/2022 1:50 PM Age: 51 years old Clinical indication: Fever; Additional info: Rule out infection source, pneumonia, poor oral intake, nonverbal TECHNIQUE: Imaging protocol: Diagnostic computed tomography of the chest without contrast. Radiation optimization: All CT scans at this facility use at least one of these dose optimization techniques: automated exposure control; mA and/or kV adjustment per patient size (includes targeted exams where dose is matched to clinical indication); or iterative reconstruction. COMPARISON: CR (CHEST, ) 07/01/2022 1:02 PM RADIATION DOSE METRICS: Total DLP (mGy-cm): 858.53 FINDINGS: Lungs: Multifocal bilateral pulmonary infiltrates. There is mucous in the trachea and right mainstem bronchus. Pleural spaces: Unremarkable. No pneumothorax. No pleural effusion. Heart: Cardiomegaly. There are post sternotomy changes and postoperative changes in the anterior mediastinum. No coronary artery calcifications are seen. Lymph nodes: Unremarkable. No enlarged lymph nodes. Vasculature: Unremarkable. No aortic aneurysm. Bones/joints: See Heart finding. Soft tissues: Unremarkable. PROCEDURE INFORMATION: Exam: CT Abdomen And Pelvis Without Contrast Exam date and time: 07/01/2022 1:50 PM Age: 51 years old Clinical indication: Fever; Additional info: Rule out infection source, pneumonia, poor oral intake, nonverbal TECHNIQUE: Imaging protocol: Computed tomography of the abdomen and pelvis without contrast. Radiation optimization: All CT scans at this facility use at least one of these dose optimization techniques: automated exposure control; mA and/or kV adjustment per patient size (includes targeted exams where dose is matched to clinical indication); or iterative reconstruction. COMPARISON: CT abdomen pelvis w con* [id number] 08/27/2019 1:54 PM RADIATION DOSE METRICS: Total DLP (mGy-cm): 858.53 FINDINGS: Liver: Normal. No mass. Gallbladder and bile ducts: Normal. No calcified stones. No ductal dilation. Pancreas: Normal. No ductal dilation. Spleen: Normal. No splenomegaly. Adrenal glands: Normal. No mass. Kidneys and ureters: Punctate nonobstructing right renal calculus. Stomach and bowel: Colonic constipation is present. Appendix: No evidence of appendicitis. Intraperitoneal space: Unremarkable. No free air. No significant fluid collection. Vasculature: Unremarkable. No abdominal aortic aneurysm. Lymph nodes: Unremarkable. No enlarged lymph nodes. Urinary bladder: There is a Badillo catheter in the bladder. The bladder wall about the Badillo catheter appears thickened. Reproductive: Unremarkable as visualized. Bones/joints: Unremarkable. No acute fracture. Soft tissues: Unremarkable. CT/CT chest abdpel [id number] IMPRESSION: 1. Bilateral pneumonia. 2. There is mucous in the trachea and right mainstem bronchus. IMPRESSION: 1. The bladder wall is thickened. This is nonspecific and may represent bladder outlet obstruction, inflammation or infection. Neoplastic process is included in the differential. 2. Colonic constipation is present.
--- NOTE | 2022-07-01 12:06 | USCV_ITS ---
Abdulkadir Hill Age: 51 Gender: M : 1970 Exam Date: 07/01/2022 14:01 Ordering Phys: Tea Stark MD ([email or web address]) Technologist: Monique Hdz [place] [facility] [place]: Bovine valve BP: 109 / 74 HR: 87 Rhythm: Sinus Technical Quality: Adequate MEASUREMENTS (Male / Female) Normal Values 2D ECHO LV Diastolic Diameter PLAX 4.1 cm 4.2 - 5.9 / 3.9 - 5.3 cm LV Systolic Diameter PLAX 3.4 cm IVS Diastolic Thickness 0.8 cm 0.6 - 1.0 / 0.6 - 0.9 cm IVS Systolic Thickness 1.4 cm LVPW Diastolic Thickness 1.3 cm 0.6 - 1.0 / 0.6 - 0.9 cm LVPW Systolic Thickness 1.4 cm LVOT Diameter 2.0 cm LV Ejection Fraction 2D Teich 35.4 % LV Ejection Fraction MOD 2C 29.3 % LV Ejection Fraction 2C AL 28.8 % LA Diameter 1.9 cm LA Width 2.1 cm LA Height 3.0 cm RA Width 2.7 cm RA Height 3.5 cm Aorta at Sinotubular Diameter 1.9 cm DOPPLER AV Peak Velocity 307.5 cm/s LVOT Peak Velocity 80.8 cm/s AV Area Cont Eq vti 0.7 cm squared AV Area Cont Eq pk 0.8 cm squared FINDINGS Left Ventricle Normal left ventricular cavity size. Moderately decreased left ventricular systolic function. Basal septal hypertrophy noted. Left ventricular ejection fraction is estimated at 30 %. Moderate global hypokinesis with some regional variation. Severe hypokinesis of apical septal apical, apical lateral and apical jean. Abnormal (paradoxical) septal motion consistent with postoperative status. Right Ventricle Normal right ventricular size and systolic function. Right Atrium Normal right atrial size. Left Atrium Left atrium not well visualized. Mitral Valve Structurally normal mitral valve. Aortic Valve Bioprosthetic aortic valve well-seated. Prosthetic aortic valve peak velocity 2.6 m/s, peak gradient 27 mmHg, mean gradient 14 mmHg, DVI = 0.36, aortic valve area by continuity equation 1.2 cm squared. WA=125 msec. Tricuspid Valve Tricuspid valve not well visualized. Pulmonic Valve Pulmonic valve not well visualized. Pericardium No pericardial effusion. Prominent epicardial fat. Aorta Aorta not well visualized. IVC Normal IVC dimension with >50% respiratory change of the inferior vena cava. CONCLUSIONS 1. This is a technically difficult study. Optison was used per protocol. 2. Normal left ventricular cavity size. Moderately decreased left ventricular systolic function. Basal septal hypertrophy noted. Left ventricular ejection fraction is estimated at 30 %. Moderate global hypokinesis with some regional variation. Severe hypokinesis of apical septal apical, apical lateral and apical jean. 3. Bioprosthetic aortic valve peak velocity 2.6 m/s, peak gradient 27 mmHg, mean gradient 14 mmHg, DVI = 0.36, aortic valve area by continuity equation 1.2 cm squared. (TX=958 msec, triangular jet). No significant valvular or perivalvular regurgitation. Tea Stark MD (Electronically Signed) Final Date: 02 July 2022 13:45 S
[2022-07-01] MEDS: perflutren protein-a microsphr 0.22 mg/mL SDV 3 mL IV (14:54)
[2022-07-01] MEDS: pantoprazole 40 mg SDV IVP (16:47)
[2022-07-01] MEDS: ketorolac 30 mg/mL INJ 15 MG IVP (20:41)
[2022-07-02] VITALS (14 sets, daily range): BP systolic 96–113; BP diastolic 63–74; PULSE 67–91; RESP 12–22; TEMP 36.6–38.2; O2SAT 93–99
[2022-07-02 05:34] LABS: Basophils % 0.3 %; Eosinophils % 0.3 %; Hematocrit 38.7 % (42.0-52.0); Hemoglobin 12.5 g/dL (11.7-16.6); Lymphocytes # 0.8 10^3/uL (0.8-4.8); Lymphocytes % 11.2 %; Mean Corpuscular HGB Conc 32.3 g/dL (30.0-36.0); Mean Corpuscular Hemoglobin 33.7 pg (28.0-34.0); Mean Corpuscular Volume 104.3 fl (80-94); Mean Platelet Volume 9.6 fL (7.4-10.4); Monocytes # 1.3 10^3/uL (0.2-0.9); Neutrophils # 5.25 10^3/uL (1.8-7.7); Neutrophils % 70.7 %; Nucleated Red Blood Cells % 0 %; Platelet Count 281 10^3/cmm (130-400); Red Blood Count 3.71 10^6/uL (4.1-5.3); Red Cell Distribution Width 14.6 % (12.1-15.1); White Blood Count 7.4 10^3/uL (4.0-10.0)
[2022-07-02 05:45] LABS: INR 3.78 (0.8-1.2)
[2022-07-02 05:52] LABS: Anion Gap 15.2 (5-19); Blood Urea Nitrogen 15 mg/dL (6-20); Calcium 8.7 mg/dL (8.5-10.5); Carbon Dioxide 32 mmol/L (22-29); Chloride 101 mmol/L (98-107); Creatinine Clr Calc Pharmacy 112.1578; Glomerular Filtration Rate 102.3 mL/min (90-130); Glucose 98 mg/dL (65-115); Magnesium 1.9 mg/dL (1.7-2.3); Osmolality Calculated 301 mOsm/kg (285-295); Potassium 3.2 mmol/L (3.5-5.1); Sodium 145 mmol/L (136-145)
[2022-07-02] MEDS: piperacillin-tazobactam 3.375 GM in sodium chloride 0.9% (plus) 50 ML IV ×2 (08:31→15:36)
[2022-07-02] MEDS: FUROsemide 10 mg/mL SDV 4mL 40 MG IVP (11:25)
[2022-07-02] MEDS: pantoprazole 40 mg SDV IVP (15:37)
--- NOTE | 2022-07-02 15:50 | PM.PN ---
Subjective Subjective: Somnolent, lethargic, does not wake up to calling name or painful stimulus. Mother at bedside notes no significant improvement. Currently on heated high flow 40% FiO2 at 30 L/min. Saturating 93 to 99%. T-max 100.4 overnight. COVID PCR remains pending. Medications: Reviewed: Yes Vitals/I&O/Wt Last Vital Signs Temp 98.6 F 07/02/22 11:45 Pulse 71 07/02/22 15:00 Resp 17 07/02/22 15:00 BP 101/71 07/02/22 11:45 Pulse Ox 99 07/02/22 15:00 O2 Del Method 07/02/22 11:45 O2 Flow Rate 30 07/02/22 15:00 FiO2 45 07/02/22 15:00 07/02/22 07/02/22 07/02/22 06:59 14:59 22:59 Intake Total 50 / 252 102 / 102 Output Total 400 / 550 Balance -350 / -298 102 / 102 Weight last 48 hrs Weight 71.781 kg Physical Exam Narrative: General: No acute distress, lying in bed, unresponsive to calling name or to painful stimulus. HEENT: pupils bilaterally equal and reactive Chest: Normal vesicular breath sounds anteriorly. CVS: S1-S2 regular Abdomen: Soft, nontender, no organomegaly, bowel sounds present Neuro: Unable to participate in neuro exam. Unable to perform neuro exam at this time. Extremities: No edema clubbing or cyanosis Urinary Catheter Management: Badillo: Cath Placed During This Visit: yes Reason for Continuing Indwelling Catheter: Acute Urinary Retention or Obstruction Urinary Catheter Date of Insertion: 06/30/22 Data : 07/02/22 05:11 07/02/22 05:11 Micro: Microbiology 07/01/22 15:40 Bacterial Antigens - Final Urine,Voided 07/01/22 12:48 Blood Culture - Preliminary Blood NEGATIVE TO DATE 07/01/22 12:47 Blood Culture - Preliminary Blood NEGATIVE TO DATE 07/01/22 15:35 MRSA Culture - Final Nose 07/01/22 15:40 Legionella Urinary Antigen - Final Urine Catheterized CT/[place] [id number] IMPRESSION: 1. Bilateral pneumonia. 2. There is mucous in the trachea and right mainstem bronchus. ? IMPRESSION: 1. The bladder wall is thickened. This is nonspecific and may represent bladder outlet obstruction, inflammation or infection. Neoplastic process is included in the differential. 2. Colonic constipation is present. A&P Assessment and plan (1) Heart failure: Status: Acute (2) Seizures: Status: Acute (3) Normal pressure hydrocephalus: Status: Acute (4) DNR (do not resuscitate): Status: Acute (5) At risk for aspiration: Status: Acute (6) History of stroke: Status: Acute (7) H/O aortic valve replacement with porcine valve: Status: Acute (8) Non-verbal learning disorder: Status: Acute (9) Down syndrome: Status: Acute Plan #Acute on chronic systolic congestive heart failure exacerbation Echocardiogram shows LVEF of 30%, global moderate hypokinesis with some regional variation. Severe hypokinesis of apical septal lateral jean. Bioprosthetic valve is noted. Currently on diuresis with 40 mg IV Lasix twice daily. Net -1.3 L since admission. Stable renal function. Increase Lasix to 60 mg IV every 12h Monitor PHI Warfarin is currently on hold given supratherapeutic INR, check INR with a.m. labs. He continues to be on heated high flow at this time. #NSTEMI, type II Likely related to acute CHF exacerbation #Bilateral consolidation on CT of the chest. Also additional mucous plugging. Overall patient appears to additionally be aspirating given right-sided predominance on imaging review. Currently on antibiotic coverage with piperacillin tazobactam. Discussed with mother at bedside that patient is at high risk of recurrent aspiration episodes. She states that feeding tube is not compatible with his overall goals of care. Family wishes to evaluate for improvement over the next few days, to the point where patient may be able to swallow pills (crushed) to be able to transition to oral medications. Otherwise no aggressive intervention is desired. Pending COVID PCR #Chronically anticoagulated with warfarin #Supratherapeutic INR 3 #History of Down syndrome #History cerebrovascular accident #History of seizures #Total assist, Pina lift #Nonverbal #Aspiration risk #Poor oral intake #Possible aspiration pneumonia DNR/DNI Discussed extensively with his mother at bedside. Prognosis is guarded. Attestations Medical Necessity Statement*: Continues to be on heated high flow, attempts at tapering down, increase diuresis, monitor with ongoing IV antibiotics for interval improvement. Coding Level of Care Code Acute Distributor Sales Consultant for Ammy Arriaga Diagnoses Heart failure I50.9 Seizures R56.9 Normal pressure hydrocephalus G91.2 DNR (do not resuscitate) Z66 At risk for aspiration Z91.89 History of stroke Z86.73 H/O aortic valve replacement with porcine valve Z95.3 Non-verbal learning disorder F81.89 Down syndrome Q90.9
--- NOTE | 2022-07-02 19:31 | P.PN_ITS ---
Subjective Subjective: Patient remains non verbal and is not tolerating anything PO. Currently on heated high flow 40% FiO2 at 30 L/min.? COVID PCR remains pending. Medications: Reviewed: Yes Vitals/I&O/Wt Last Vital Signs Temp 99.7 F H 07/02/22 16:00 Pulse 79 07/02/22 16:00 Resp 17 07/02/22 16:00 BP 107/71 07/02/22 16:00 Pulse Ox 97 07/02/22 16:00 O2 Del Method 07/02/22 16:00 O2 Flow Rate 30 07/02/22 15:00 FiO2 45 07/02/22 15:00 07/02/22 07/02/22 07/02/22 06:59 14:59 22:59 Intake Total 50 / 252 102 / 102 Output Total 400 / 550 1450 / 1450 Balance -350 / -298 102 / 102 -1450 / -1348 Physical Exam Narrative: GENERAL: obese man looking younger than his age HEENT: No pallor or icterus. NECK: Short neck, JVD not appreciated CARDIOVASCULAR SYSTEM: S1-S2 regular. No murmur or gallops. RESPIRATORY SYSTEM: Chest clear to auscultation. No wheezes rhonchi or rubs heard. No use of accessory muscles. ABDOMEN: Soft, nontender and nondistended. Normal bowel sounds present. EXTREMITIES: Trace edema. No signs of chronic venous insufficiency. WORKERS' COMPENSATION MAGISTRATE: Patient is non verbal, holding hands; not following commands/tracking. Urinary Catheter Management: Badillo: Cath Placed During This Visit: yes Reason for Continuing Indwelling Catheter: Acute Urinary Retention or Obstruction Urinary Catheter Date of Insertion: 06/30/22 Data : 07/02/22 05:11 07/02/22 05:11 Micro: Microbiology 07/01/22 15:40 Bacterial Antigens - Final Urine,Voided 07/01/22 12:48 Blood Culture - Preliminary Blood NEGATIVE TO DATE 07/01/22 12:47 Blood Culture - Preliminary Blood NEGATIVE TO DATE 07/01/22 15:35 MRSA Culture - Final Nose 07/01/22 15:40 Legionella Urinary Antigen - Final Urine Catheterized A&P Assessment and plan (1) Heart failure: HFrEF (LVEF=30% on echo today) -continue IV lasix I had long discussion with patient's parents about patient's current situation. Patient is not able to tolerate PO intake. -They are not in favor of any aggressive procedures and interventions. I agree with that. -Plan for medical management. May use metoprolol 2.5 mg IV q 4-6 hr as tolerated -will f/u on recent records. Status: Acute (2) H/O aortic valve replacement with porcine valve: Status: Acute (3) History of stroke: Status: Acute Plan NSTEMI type 2 in setting of CHF LBBB Frequent PVC's Hypokalemia: replace H/o Left Leg DVT in 02/2022: on warfarin: INR 3.78 H/o CABG x1 in 2004 Down's syndrome Non verbal Poor oral intake Concern for aspiration PNA DNR/DNI Thank you for allowing me to participate in patient's care. Please feel free to call with questions or concerns. Attestations Medical Necessity Statement*: As per primary team Coding Level of Care Code Acute Library Associate for Ammy Arriaga Diagnoses Heart failure I50.9 H/O aortic valve replacement with porcine valve Z95.3 History of stroke Z86.73
--- NOTE | 2022-07-02 20:54 | PC.NURSE ---
Dr. Milner notified of temp of 100.8. Patient unable to swallow PO Tylenol and out of stock of rectal Tylenol. Ordered to give PRN Toradol for elevated temperature.
[2022-07-02] MEDS: lidocaine 1% 5 ML in potassium chloride premix 100 ML 25 ML IV (21:31)
[2022-07-02] MEDS: ketorolac 30 mg/mL INJ 15 MG IVP (21:32)
[2022-07-03] VITALS (14 sets, daily range): BP systolic 95–111; BP diastolic 60–72; PULSE 74–88; RESP 16–27; TEMP 37.2–39.2; O2SAT 90–98
[2022-07-03] MEDS: FUROsemide 10 mg/mL SDV 10mL 60 MG IVP ×3 (00:35→21:47)
[2022-07-03] MEDS: piperacillin-tazobactam 3.375 GM in sodium chloride 0.9% (plus) 50 ML IV ×4 (00:36→21:48)
[2022-07-03] MEDS: lanolin oint 7 gm 1 APPLIC TOPICAL (03:40)
--- NOTE | 2022-07-03 05:09 | PC.NURSE ---
Family educated on proper PPE usage.
[2022-07-03 05:31] LABS: Basophils % 0.4 %; Eosinophils % 0.3 %; Hematocrit 42.3 % (42.0-52.0); Hemoglobin 13.3 g/dL (11.7-16.6); Lymphocytes % 13.6 %; Mean Corpuscular HGB Conc 31.4 g/dL (30.0-36.0); Mean Corpuscular Hemoglobin 33.3 pg (28.0-34.0); Mean Corpuscular Volume 105.8 fl (80-94); Mean Platelet Volume 9.4 fL (7.4-10.4); Monocytes # 0.9 10^3/uL (0.2-0.9); Monocytes % 11.8 %; Neutrophils # 5.28 10^3/uL (1.8-7.7); Neutrophils % 72.3 %; Nucleated Red Blood Cells % 0 %; Platelet Count 317 10^3/cmm (130-400); Red Cell Distribution Width 14.6 % (12.1-15.1); White Blood Count 7.3 10^3/uL (4.0-10.0)
[2022-07-03 05:43] LABS: INR 4.54 (0.8-1.2)
[2022-07-03 05:48] LABS: Alanine Aminotransferase 7 U/L (0-41); Alkaline Phosphatase 96 U/L (40-130); Blood Urea Nitrogen 16 mg/dL (6-20); Carbon Dioxide 32 mmol/L (22-29); Chloride 103 mmol/L (98-107); Creatinine Clr Calc Pharmacy 112.1578; Globulin 4.4 g/dL (1.3-4.6); Glomerular Filtration Rate 102.3 mL/min (90-130); Glucose 93 mg/dL (65-115); Osmolality Calculated 309 mOsm/kg (285-295); Sodium 149 mmol/L (136-145); Total Bilirubin 0.3 mg/dL (0.15-1.2); Total Protein 7.4 g/dL (6.6-8.7)
[2022-07-03 05:49] LABS: Anion Gap 17.6 (5-19); Aspartate Amino Transferase 15 U/L (0-40); Potassium 3.6 mmol/L (3.5-5.1)
[2022-07-03 07:33] LABS: Magnesium 2.2 mg/dL (1.7-2.3)
[2022-07-03 11:40] LABS: SARS Covid-2 Antigen Negative (Negative)
[2022-07-03] MEDS: ketorolac 30 mg/mL INJ 15 MG IVP ×2 (12:35→21:48)
--- NOTE | 2022-07-03 13:19 | PC.SOCIAL ---
IMM Update IMM Updated w/ patients parents. Copy provided. Copy dated, initialed and placed in chart.
--- NOTE | 2022-07-03 14:10 | PC.RESP ---
Therapist was called by nurse stating that Dr. Robin said to place patient on a pendant. Therapist took heated high flow off of patient and placed him on an 8LPM pendant sats are 90% heart rate 82.
--- NOTE | 2022-07-03 15:40 | PM.PN ---
Subjective Subjective: Patient appears slightly more awake today. He is responding to his mother's voice, opens eyes. However does not participate in conversation. Still on heated high flow at 40% FiO2 at 30 L/min.Febrile 101F Medications: Reviewed: Yes Vitals/I&O/Wt Last Vital Signs Temp 101.0 F H 07/03/22 12:00 Pulse 82 07/03/22 14:09 Resp 22 H 07/03/22 14:09 BP 96/60 07/03/22 12:00 Pulse Ox 90 07/03/22 14:09 O2 Del Method 07/03/22 14:09 O2 Flow Rate 8 07/03/22 14:09 FiO2 45 07/03/22 11:38 07/03/22 07/03/22 07/03/22 06:59 14:59 22:59 Intake Total 155 / 359 102 / 102 Output Total 525 / 1975 Balance -370 / -1616 102 / 102 Physical Exam Narrative: General: No acute distress, lying in bed, opens eyes to calling name HEENT: pupils bilaterally equal and reactive Chest: Normal vesicular breath sounds anteriorly. CVS: S1-S2 regular Abdomen: Soft, nontender, no organomegaly, bowel sounds present Neuro: Unable to participate in neuro exam. Unable to perform neuro exam at this time. Extremities: No edema clubbing or cyanosis Urinary Catheter Management: Badillo: Cath Placed During This Visit: yes Reason for Continuing Indwelling Catheter: Acute Urinary Retention or Obstruction Urinary Catheter Date of Insertion: 06/30/22 Data : 07/03/22 05:22 07/03/22 05:22 Micro: Microbiology 07/01/22 15:40 Bacterial Antigens - Final Urine,Voided 07/01/22 12:48 Blood Culture - Preliminary Blood NEGATIVE TO DATE 07/01/22 12:47 Blood Culture - Preliminary Blood NEGATIVE TO DATE 07/01/22 15:35 MRSA Culture - Final Nose A&P Assessment and plan (1) Heart failure: Status: Acute (2) Seizures: Status: Acute (3) Normal pressure hydrocephalus: Status: Acute (4) DNR (do not resuscitate): Status: Acute (5) At risk for aspiration: Status: Acute (6) History of stroke: Status: Acute (7) H/O aortic valve replacement with porcine valve: Status: Acute (8) Non-verbal learning disorder: Status: Acute (9) Down syndrome: Status: Acute Plan #Acute on chronic systolic congestive heart failure exacerbation Echocardiogram shows LVEF of 30%, global moderate hypokinesis with some regional variation. Severe hypokinesis of apical septal lateral jean. Bioprosthetic valve is noted. continmue Lasix to 60 mg IV every 12h , optimized from a cardiac standpoint Will transition to po lasix once able Monitor PHI Warfarin is currently on hold given supratherapeutic INR, check INR with a.m. labs. He continues to be on heated high flow at this time. #NSTEMI, type II Likely related to acute CHF exacerbation #Bilateral consolidation on CT of the chest. Also additional mucous plugging. Overall patient appears to additionally be aspirating given right-sided predominance on imaging review. Currently on antibiotic coverage with piperacillin tazobactam. Discussed with family at bedside that patient is at high risk of recurrent aspiration episodes. family states that feeding tube is not compatible with his overall goals of care. Family wishes to evaluate for improvement over the next few days, to the point where patient may be able to swallow pills (crushed) to be able to transition to oral medications. Otherwise no aggressive intervention is desired. Pending COVID PCR #Chronically anticoagulated with warfarin #Supratherapeutic INR 3 #History of Down syndrome #History cerebrovascular accident #History of seizures #Total assist, Pina lift #Nonverbal #Aspiration risk #Poor oral intake Extensive goals of care discussion with the family at bedside. This included patient's parents, brother and [id number]. Family understands that there is a high risk of aspiration with attempting to feed, however since there is no other way of providing him nutrition since TPN and PEG tube are not compatible with goals of care, we will attempt setting him up and attempting a pur?ed diet today. At a baseline patient is able to swallow pills and take pudding consistency foods.We will resume this today. Additionally will start weaning down HHFC to oxypendant and monitor 02. Family to decide over next few days regarding further inpatient care vs transition to hospice DNR/DNI Attestations Medical Necessity Statement*: see above, ongoing fever, iv abx, assessment for oral intake Coding Level of Care Code Acute Inverter And Clipper for Chg Fwd Diagnoses Heart failure I50.9 Seizures R56.9 Normal pressure hydrocephalus G91.2 DNR (do not resuscitate) Z66 At risk for aspiration Z91.89 History of stroke Z86.73 H/O aortic valve replacement with porcine valve Z95.3 Non-verbal learning disorder F81.89 Down syndrome Q90.9
--- NOTE | 2022-07-03 15:52 | P.PN_ITS ---
Subjective Subjective: Pt. still is febrile. Occasional PVC's on telemetry Medications: Reviewed: Yes Vitals/I&O/Wt Last Vital Signs Temp 101.0 F H 07/03/22 12:00 Pulse 82 07/03/22 14:09 Resp 22 H 07/03/22 14:09 BP 96/60 07/03/22 12:00 Pulse Ox 90 07/03/22 14:09 O2 Del Method 07/03/22 14:09 O2 Flow Rate 8 07/03/22 14:09 FiO2 45 07/03/22 11:38 07/03/22 07/03/22 07/03/22 06:59 14:59 22:59 Intake Total 155 / 359 102 / 102 Output Total 525 / 1975 Balance -370 / -1616 102 / 102 Physical Exam Narrative: GENERAL: obese man looking younger than his age HEENT: No pallor or icterus. NECK: Short neck, JVD not appreciated CARDIOVASCULAR SYSTEM: S1-S2 regular. No murmur or gallops. RESPIRATORY SYSTEM: Chest clear to auscultation. No wheezes rhonchi or rubs heard. No use of accessory muscles. ABDOMEN: Soft, nontender and nondistended. Normal bowel sounds present. EXTREMITIES: Trace edema. No signs of chronic venous insufficiency. YARN REWINDER: Patient is non verbal, holding hands; not following commands/tracking. Urinary Catheter Management: Badillo: Cath Placed During This Visit: yes Reason for Continuing Indwelling Catheter: Acute Urinary Retention or Obstruction Urinary Catheter Date of Insertion: 06/30/22 Data : 07/03/22 05:22 07/03/22 05:22 Micro: Microbiology 07/01/22 15:40 Bacterial Antigens - Final Urine,Voided 07/01/22 12:48 Blood Culture - Preliminary Blood NEGATIVE TO DATE 07/01/22 12:47 Blood Culture - Preliminary Blood NEGATIVE TO DATE 07/01/22 15:35 MRSA Culture - Final Nose A&P Assessment and plan (1) Heart failure: HFrEF (LVEF=30% on echo today) -continue IV lasix I had long discussion with patient's parents about patient's current situation. Patient is not able to tolerate PO intake. -They are not in favor of any aggressive procedures and interventions. I agree with that. -Plan for medical management. May use metoprolol 2.5 mg IV q 4-6 hr as tolerated -Records not received. -I discussed with patient's parents and brother about hospice. Will defer further management to primary team. Patient will be seen as needed. 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 Please feel free to call with questions or concerns. Attestations Medical Necessity Statement*: As per primary team Coding Level of Care Code Acute Chimney Construction Supervisor for Amym Arriaga Diagnoses Heart failure I50.9 H/O aortic valve replacement with porcine valve Z95.3 History of stroke Z86.73
[2022-07-03] MEDS: pantoprazole 40 mg SDV IVP (16:39)
--- NOTE | 2022-07-03 21:56 | ECG_ITS ---
[facility] Test Date: 2022-07-03 Pat Name: Abdulkadir Hill Department: Room: 257 Gender: Male Orientation And Mobility Instructor: : 1970 Requested By: Neal Milner Order Number: [id number] Jeff MD: Tea Stark M.D. Measurements Intervals [place] Rate: 200 P: AK: QRS: 49 QRSD: 213 T: 0 QT: 310 QTc: 566 Interpretive Statements Ventricular tachycardia Compared to ECG 07/01/2022 08:47:04 Sinus rhythm no longer present Ventricular premature complex(es) no longer present Left bundle-branch block no longer present Electronically Signed On 07-04-2022 17:34:27 CDT by Tea Stark M.D. [email or web address] [email or web address].[employer]/store/[id number] f
--- NOTE | 2022-07-03 22:04 | ECG_ITS ---
[facility] Test Date: 2022-07-03 Pat Name: Abdulkadir Hill Department: Room: 257 Gender: Male Manager Medical Writing: : 1970 Requested By: Neal Milner Order Number: [id number] Jeff MD: Alo Doss M.D. Measurements Intervals [place] Rate: 101 P: 41 ID: [id number] QRS: 8 QRSD: 153 T: 30 QT: 335 QTc: 434 Interpretive Statements SINUS TACHYCARDIA WITH FREQUENT VENTRICULAR PREMATURE COMPLEXES INTRAVENTRICULAR CONDUCTION DELAY [130+ ms QRS DURATION] Compared to ECG 07/03/2022 21:57:13 Ventricular premature complex(es) now present ST (T wave) deviation no longer present Myocardial infarct finding no longer present Electronically Signed On 07-04-2022 19:48:29 CDT by Alo Doss M.D. [email or web address] [email or web address].[employer]/store/[id number] f
--- NOTE | 2022-07-03 22:06 | XRR_ITS ---
PROCEDURE INFORMATION: Exam: XR Chest Exam date and time: 07/03/2022 10:08 PM Age: 51 years old Clinical indication: Other: Svt/v tach possible; Additional info: Physician TECHNIQUE: Imaging protocol: Radiologic exam of the chest. Views: 1 view. COMPARISON: CT chest abdpel [id number] 07/01/2022 1:50 PM FINDINGS: Lungs: Unremarkable. No consolidation. Pleural spaces: Unremarkable. No pleural effusion. No pneumothorax. Heart/Mediastinum: Stable CABG procedure. Moderate cardiomegaly. Bones/joints: Unremarkable. XR/XR chest 1V portable [id number] IMPRESSION: 1. Stable CABG procedure. 2. Moderate cardiomegaly.
--- NOTE | 2022-07-03 22:25 | PC.NURSE ---
Addendum entered by Zuleima Carrasco RN 07/04/22 06:48: This nurse and father of patient at bedside when patient's heart rate increased. Addendum entered by Zuleima Carrasco RN 07/03/22 22:27: Patient will be transferred to ICU as CSU overflow. Unable to obtain blood pressure when patient was in SVT, however after IVP Amio given, blood pressure WNL. Original Note: Patient's heart rate 198 on monitor. Rapid response called at 2153. Patient appeared to be in SVT. EKG taken. At 2202, 150 IVP Amio given per order from crash cart. Dr. Milner at bedside. EKG taken again. Patient's heart rate 101. Amio drip started. CXR taken. Labs ordered. Blood pressure and oxygen saturation remained stable throughout.
[2022-07-03 22:36] LABS: Anion Gap 18.2 (5-19); Blood Urea Nitrogen 20 mg/dL (6-20); Calcium 9.1 mg/dL (8.5-10.5); Carbon Dioxide 33 mmol/L (22-29); Chloride 101 mmol/L (98-107); Glomerular Filtration Rate 79.1 mL/min (90-130); Glucose 107 mg/dL (65-115); Magnesium 2.2 mg/dL (1.7-2.3); Osmolality Calculated 311 mOsm/kg (285-295); Potassium 3.2 mmol/L (3.5-5.1); Sodium 149 mmol/L (136-145)
--- NOTE | 2022-07-03 22:50 | W.PM.EVENTAC ---
Event Notes Attestations Time Spent in Patient Care: Response was called for heart rate in 200s On telemetry it was wide QRS EKG showed bundle branch block with AVn RT which gave appearance of V. tach Patient was nonverbal which is at baseline Febrile Family at the bedside He was able to protect his airway Currently on 6 to 8 L of oxygen Bilateral breath sounds diminished, left side Abdomen soft Patient feels warm Euvolemic Concentrated urine Assessment plan Amiodarone 150 mg IV push which converted his heart rate from 200 to 100 and change his rhythm to sinus rhythm, it is still showing a lot of PVCs, I requested magnesium and BMP along chest x-ray D-dimer Potassium 3.2 Mag 2.2 Potassium repleted Started amiodarone drip
[2022-07-03 23:12] LABS: D Dimer 0.52 ug/mIFEU (0-0.59)
[2022-07-03] MEDS: lidocaine 1% 5 ML in potassium chloride premix 100 ML 25 ML IV (23:17)
[2022-07-04] VITALS (34 sets, daily range): BP systolic 91–108; BP diastolic 59–74; PULSE 68–90; RESP 22–24; TEMP 37–38.7; O2SAT 89–99
--- NOTE | 2022-07-04 00:33 | PC.NURSE ---
Pt on a pendant nasal cannula.
--- NOTE | 2022-07-04 01:11 | PC.NURSE ---
Pt had small amount of blood in his mouth upon arrival to unit. Oral care performed. Pt's parents tell me that Abdulkadir appeared to have a seizure prior to his heart arrhythmia on med-surg.
[2022-07-04 05:51] LABS: Basophils # 0.1 10^3/uL (0.0-0.1); Basophils % 0.3 %; Hematocrit 46.3 % (42.0-52.0); Hemoglobin 14.4 g/dL (11.7-16.6); Lymphocytes # 0.7 10^3/uL (0.8-4.8); Lymphocytes % 2.8 %; Mean Corpuscular HGB Conc 31.1 g/dL (30.0-36.0); Mean Corpuscular Hemoglobin 33.6 pg (28.0-34.0); Mean Corpuscular Volume 107.9 fl (80-94); Mean Platelet Volume 9.6 fL (7.4-10.4); Monocytes % 8.4 %; Neutrophils # 20.43 10^3/uL (1.8-7.7); Neutrophils % 86.6 %; Nucleated Red Blood Cells % 0 %; Platelet Count 342 10^3/cmm (130-400); Red Blood Count 4.29 10^6/uL (4.1-5.3); Red Cell Distribution Width 14.8 % (12.1-15.1); White Blood Count 23.6 10^3/uL (4.0-10.0)
[2022-07-04 06:09] LABS: Alanine Aminotransferase 11 U/L (0-41); Alkaline Phosphatase 102 U/L (40-130); Blood Urea Nitrogen 21 mg/dL (6-20); Calcium 8.9 mg/dL (8.5-10.5); Carbon Dioxide 32 mmol/L (22-29); Chloride 102 mmol/L (98-107); Globulin 4.6 g/dL (1.3-4.6); Glomerular Filtration Rate 70.9 mL/min (90-130); Glucose 138 mg/dL (65-115); Osmolality Calculated 307 mOsm/kg (285-295); Sodium 146 mmol/L (136-145); Total Bilirubin 0.4 mg/dL (0.15-1.2); Total Protein 7.6 g/dL (6.6-8.7)
[2022-07-04 06:10] LABS: Anion Gap 15.7 (5-19); Aspartate Amino Transferase 27 U/L (0-40); Potassium 3.7 mmol/L (3.5-5.1)
[2022-07-04 06:44] LABS: INR 5.78 (0.8-1.2)
--- NOTE | 2022-07-04 06:55 | PC.NURSE ---
Bedside report completed with BERNABE Desouza
[2022-07-04] MEDS: FUROsemide 10 mg/mL SDV 10mL 40 MG IVP ×2 (10:52→21:27)
[2022-07-04] MEDS: bisacodyl 10 mg Supp PR (10:52)
[2022-07-04] MEDS: piperacillin-tazobactam 3.375 GM in sodium chloride 0.9% (plus) 50 ML IV ×2 (10:54→16:08)
--- NOTE | 2022-07-04 11:01 | PC.CHAP ---
Pastoral Care Encounter/Spiritual Assessment Type of Contact [] Declined chief service dispatcher visit [] Patient/Family/Request visit [] Outpatient visit [] Follow-up visit [] Physician referral [] Code/Alert [x] Routine visit [] Staff referral [] Actively dying [] Patient sleeping [x] Family support [] [] Out of room [] Palliative care [] [] Receiving care in room [] Pre-surgical visit [] Trauma [] Long length of stay [x] ICU visit [] Other: Relational/Emotional Strength [] Patient feels connected with others/family/visitors/staff [] Distress [] Loneliness/isolation [] Abandonment Spirituality of Patient [] Person of [place] [] Attends Mu-Ism of their [place] [] Believes in Prayer [] Reads Bible or Buddhist materials [] There are Spiritual issues to be addressed Boil Off Machine Operator Cloth Interventions [x] Prayer [] Active listening [] Non-anxious presence [] Spiritual/emotional support [] Crisis/trauma care [] Spiritual counseling [] Bereavement support [] Provided bereavement packet [] Provided Bible/devotional materials [] Provided toy/stuffed animal, coloring book to patient or family member [] Provided Communion [] Anointing/[place] [] Salvation [x] Completed spiritual assessment [] Other: Impact on Illness or Injury [] Angry [] Fearful [] Anxious [] Often cries [] Exhaustion [] Unable to work [] Unable to attend anabaptist [] Unable to walk/stand [] Unable to read [] Unable to drive [] Unable to eat/drink [] Unable to sleep [] Unable to be with family [] Patient intubated [] Other: Summary PT no communication.. father present.. hasnt eaten for days- trying to get something in him... Time spent with patient
[2022-07-04 11:58] LABS: Quest SARS-CoV-2 RNA NOT DETECTED (NOT DETECTED)
--- NOTE | 2022-07-04 12:01 | XR_ITS ---
WS: [id number] PORTABLE CHEST HISTORY: increasing WBC, possible covid COMPARISON: 07/03/2022, CT 07/01/2022 Worsening opacification throughout the LEFT lung. Areas of dense consolidation in the LEFT upper lobe and posterior to the LEFT heart. Minimal increased opacification in the RIGHT lower lobe. Minimal bl unting of the costophrenic angles from small effusions. No pneumothorax. Cardiac size: Moderately enlarged cardiac silhouette. Mediastinum/Aorta: Mild widening of the mediastinum is probably due to position of the patient. Prior median sternotomy. Superior sternotomy wire is fractured. Diffuse osteopenia. XR/XR chest 1V portable [id number] IMPRESSION: 1. Diffuse increasing consolidation throughout the LEFT lung consistent with p neumonia. 2. Cardiomegaly. 3. Very small bilateral pleural effusions.
[2022-07-04 12:20] LABS: Glucose Urine UA Norm (Normal); Ketones Urine 1+ (Negative); Nitrate Urine Negative (Negative); Protein Urine Neg (Negative); Urine Appearance Clear (CLEAR); Urine Color Yellow (Yellow); pH Urine 5 (5-7)
[2022-07-04 12:21] LABS: Add Urine Microscopic? YES; Bilirubin Urine 1+ (Negative); Blood Urine Trace (Negative); Leukocyte Esterase Urine Negative (Negative); Urobilinogen Urine 1 mg/dL (Negative)
[2022-07-04 12:23] LABS: Add Urine Culture? No; Hyaline Casts Urine 0-4 /lpf; Mucus Urine 2+ /hpf; RBC Urine 0-4 /hpf (0-2); Squamous Epithelial Cell Urine 0-4 /hpf (0-5); WBC Urine 0-4 /hpf (0-5)
[2022-07-04] MEDS: pantoprazole 40 mg SDV IVP (16:08)
[2022-07-04] MEDS: acetaminophen 650 mg Supp PR (16:17)
[2022-07-04] MEDS: glycerin adult supp 1 EACH PR (16:18)
--- NOTE | 2022-07-04 17:19 | PM.PN ---
Subjective Subjective: Patient had WCT received amidarone bolus and drip and was transfered to ICU Still no PO intake Telemetry still with frequent PVC's Medications: Reviewed: Yes Vitals/I&O/Wt Last Vital Signs Temp 99.8 F H 07/05/22 05:00 Pulse 75 07/05/22 06:00 Resp 24 H 07/04/22 06:00 BP 102/72 07/05/22 06:00 Pulse Ox 94 07/05/22 06:00 O2 Del Method 07/04/22 19:00 O2 Flow Rate 10 07/04/22 19:00 FiO2 45 07/03/22 11:38 07/04/22 07/05/22 07/05/22 22:59 06:59 14:59 Intake Total 400.603 / 520.603 405 / 405 Output Total 475 / 475 450 / 925 Balance -74.397 / 45.603 -450 / -404.397 405 / 405 Weight last 48 hrs Weight 150 lb Weight 149 lb 3.2 oz Physical Exam Narrative: GENERAL: obese man looking younger than his age HEENT: No pallor or icterus. NECK: Short neck, JVD not appreciated CARDIOVASCULAR SYSTEM: S1-S2 regular. No murmur or gallops. RESPIRATORY SYSTEM: Chest clear to auscultation. No wheezes rhonchi or rubs heard. No use of accessory muscles. ABDOMEN: Soft, nontender and nondistended. Normal bowel sounds present. EXTREMITIES: Trace edema. No signs of chronic venous insufficiency. RESEARCH PROGRAM INTERN: Patient is non verbal, holding hands; not following commands/tracking. Urinary Catheter Management: Badillo: Cath Placed During This Visit: yes Reason for Continuing Indwelling Catheter: Accurate Measurement of Urinary Output in Critically Ill Patients Urinary Catheter Date of Insertion: 06/30/22 Data : 07/05/22 04:30 07/05/22 04:30 Micro: Microbiology 07/04/22 05:35 Blood Culture - Preliminary Blood NEGATIVE TO DATE 07/04/22 05:33 Blood Culture - Preliminary Blood NEGATIVE TO DATE 07/04/22 13:15 Blood Culture - Preliminary Blood SPECIMEN COLLECTED 07/04/22 13:10 Blood Culture - Preliminary Blood SPECIMEN COLLECTED A&P Assessment and plan (1) Heart failure: HFrEF (LVEF=30% on echo today) -continue IV lasix today and possibly hold off tomorrow. Potassium 20 meq IV now. I had long discussion with patient's parents about patient's current situation. Patient is not able to tolerate PO intake. -They are not in favor of any aggressive procedures and interventions. I agree with that. -Plan for medical management. May use metoprolol 2.5 mg IV q 4-6 hr as tolerated -Records not received. - Patient has poor prognosis. I discussed with patient's parents and brother about hospice. Will defer further management to primary team. Patient will be seen as needed. Status: Acute (2) H/O aortic valve replacement with porcine valve: Status: Acute (3) History of stroke: Status: Acute Plan WCT seems to be VT by Keerthi salazareteria: May continue amiodarone gtt NSTEMI type 2 in setting of CHF LBBB Frequent PVC's Hypokalemia: replaced H/o Left Leg DVT in 02/2022: on warfarin: INR 3.78 H/o CABG x1 in 2004 Down's syndrome Non verbal Poor oral intake Concern for aspiration PNA DNR/DNI Thank you for allowing me to participate in patient's care. Please feel free to call with questions or concerns. Attestations Medical Necessity Statement*: As per primary team Coding Level of Care Code Acute Loss Prevention Guard for Gladisg Fwd Diagnoses Heart failure I50.9 H/O aortic valve replacement with porcine valve Z95.3 History of stroke Z86.73
--- NOTE | 2022-07-04 19:15 | PC.NURSE ---
Bedside report completed with BERNABE Samuel
--- NOTE | 2022-07-04 19:53 | PC.NURSE ---
Shift Note: Pt rested in bed throughout shift. Family very attentive, remained at bedside, providing suctioning and attempting oral liquid intake. Pt unable to swallow well. Pt has been febrile throughout shift He received acetaminophen once for fever of 101.6. Lung sounds very diminished in am, crackles noted in afternoon. Pt received Lasix IV today. He remains on Amiodarone gtt at 0.5 mg/min. Suppositories admin today, 2 medium formed Bm noted. Urine output of 475, some mucous noted. Frequent safety and comfort rounds continue. Orders and/or nursing care completed as indicated. Patient monitored for response to intervention and treatment(s). Education provided includes progress, plan of care, Zosyn, suppositories. Patient's sales development representative verbalized understadning of plan of care, progress and medications. Will continue to monitor.
--- NOTE | 2022-07-04 20:19 | P.PN_ITS ---
Subjective Subjective: Patient with increased white blood count today. His father and his mother have been able to get him to drink some juice but only small amounts and he appears to be holding some of it in his mouth. Chest x-ray done prior to him having any juice showed increasing consolidation throughout the left lung. Mr. Hill has had a couple of bowel movements today that were quite large. No diarrhea. During shift stacker patient did have significant what sounds like reentrant tachycardia that responded to amiodarone. Acute laboratory changes could be secondary to this though suspect due to worsening pneumonia. I talked with Aravind's parents for a long time getting a little bit more background and explaining current clinical condition from my perspective after evaluating hospital course to date. [facility]. He had to come back home after 8 days as he found it challenging to follow the rules. They describe one-time him going into another patient's room staring at her while she was sleeping and saying kendrick among other funny stories. He subsequently went to [facility] and has been there since October. They describe him being hospitalized at [place]. He walked into the facility but has not really ambulated or been himself since then. They are unsure if he might of had a stroke at some point in time. He does have dementia and it appears to have progressively worsened. The last time he spoke was at the beginning or early middle of May. His brother came into the facility and after a while he said his brother's name which was quite touching for everybody. He has been nonverbal since then. He has not been taking much by mouth for several weeks but they describe that getting progressively worse over time. Much of all of this has been attributed to dementia and I explained to them that it is a natural course that we often do see in patients with dementia. We discussed at length feeding tube versus no feeding tube with a focus on what the ultimate purpose of that would be, what would be hoped to be gained. What both parents want is to get the son that they have known back, but it is not at goal that is readily achievable. We talked about the fact that it is not out of the realm of possibility that treating the pneumonia could lead to some improvement but not necessarily the type of quality that they are looking for given the decline that has been seen over the last year. Presently we are continuing IV antibiotics, IV Benadryl and, IV amiodarone. Lovenox is presently held due to high INR. I suspect the INR is high because of antibiotics. Medications: Reviewed: Yes Vitals/I&O/Wt Last Vital Signs Temp 100.8 F H 07/04/22 17:00 Pulse 79 07/04/22 19:00 Resp 24 H 07/04/22 06:00 BP 99/67 07/04/22 19:00 Pulse Ox 93 07/04/22 19:00 O2 Del Method 07/04/22 19:00 O2 Flow Rate 10 07/04/22 19:00 FiO2 45 07/03/22 11:38 07/04/22 07/04/22 07/04/22 06:59 14:59 22:59 Intake Total 352.397 / 504.397 120 / 120 30 / 150 Output Total 1250 / 1250 475 / 475 Balance -897.603 / -745.603 120 / 120 -445 / -325 Weight last 48 hrs Weight 67.676 kg Physical Exam Narrative: Aravind was not responsive during my time in his room. He is flush with fever. He had several episodes of coughing with suctioning producing yellowish material that look like juice he had recently had. He looks comfortable but ill. Coarse breath sounds. Regular rhythm. Urinary Catheter Management: [place]: Cath Placed During This Visit: yes Reason for Continuing Indwelling Catheter: Accurate Measurement of Urinary Output in Critically Ill Patients Urinary Catheter Date of Insertion: 06/30/22 Data : 07/04/22 05:33 07/04/22 05:33 Micro: Microbiology 07/04/22 13:15 Blood Culture - Preliminary Blood SPECIMEN COLLECTED 07/04/22 13:10 Blood Culture - Preliminary Blood SPECIMEN COLLECTED 07/04/22 05:35 Blood Culture - Preliminary Blood SPECIMEN COLLECTED 07/04/22 05:33 Blood Culture - Preliminary Blood SPECIMEN COLLECTED A&P Assessment and plan (1) Heart failure: Status: Acute (2) Seizures: Status: Acute (3) Normal pressure hydrocephalus: Status: Acute (4) DNR (do not resuscitate): Status: Acute (5) At risk for aspiration: Status: Acute (6) History of stroke: Status: Acute (7) H/O aortic valve replacement with porcine valve: Status: Acute (8) Non-verbal learning disorder: Status: Acute (9) Down syndrome: Status: Acute (10) Pneumonia: Status: Acute Plan #Acute on chronic systolic congestive heart failure exacerbation Echocardiogram shows LVEF of 30%, global moderate hypokinesis with some regional variation. Severe hypokinesis of apical septal lateral jean. Bioprosthetic valve is noted. On Lasix to 40 mg IV every 12h while unable to take po He continues to be on heated high flow at this time. #NSTEMI, type II Likely related to acute CHF exacerbation #Bilateral consolidation on CT of the chest. Also additional mucous plugging. Overall patient appears to be aspirating given right-sided predominance on initial imaging review. Now with increasing left sided consolidation. Could be further aspiration versus secondary bacterial infection particularly with increasing white blood count and persistent fevers Add Vancomycin to zosyn, on day 4 of antibiotics Patient is at high risk of recurrent aspiration episodes. Family has stated that feeding tube is not compatible with his overall goals of care, though they understandably are struggling with concept Continue to evaluate for improvement over the next couple of days; whether we are able to transition to oral medications is factor that will determine further plan of care Otherwise no aggressive or invasive intervention is desired. Negative COVID PCR Blood cultures NGTD and have been repeated #Chronically anticoagulated with warfarin due to DVT several months ago, presently with supratherapeutic INR Warfarin on hold since admit due to supratherapeutic INR, check INR with a.m. labs. Lovenox can be resumed once INR normalizes #History of Down syndrome #History cerebrovascular accident - parents unclear on details regarding this #Dementia Progressively worsening #History of seizures On Dilatin #Total assist, Pina lift #Nonverbal #Aspiration risk #Poor oral intake Extensive goals of care discussion again had with parents today Will broaden antibiotics, continue to monitor oral intake, wean oxygen if able Continuing amiodarone, lasix, phenytoin, breathing treatments, suction as needed We will see if I can speak with Dr. Lopez, patient's primary care provider tomorrow Family would like to see how he does over next couple of days and continue discussions regarding ongoing care vs transition to hospice/comfort care Allow Natural Attestations Medical Necessity Statement*: Requires ongoing inpatient stay for IV antibiotics, IV amiodarone, IV Lasix and IV phenytoin. Given comorbidities, continued worsening despite care that has been initiated to date, and patient's inability to tolerate oral intake adequately I am not sure that patient will recover, but on day 4 Time Spent in Patient Care: Greater than 35 minutes (1 hour and 45 minutes talking with patient's parents in his room) (>than 50% of time spent in counselling and/or direct pt care on unit) . Coding Level of Care Code Acute Parole Board Member for Chg Fwd Diagnoses Heart failure I50.9 Seizures R56.9 Normal pressure hydrocephalus G91.2 DNR (do not resuscitate) Z66 At risk for aspiration Z91.89 History of stroke Z86.73 H/O aortic valve replacement with porcine valve Z95.3 Non-verbal learning disorder F81.89 Down syndrome Q90.9 Pneumonia J18.9
[2022-07-04] MEDS: lidocaine 1% 5 ML in potassium chloride premix 100 ML 50 ML IV (21:26)
--- NOTE | 2022-07-04 23:40 | PC.PHAR ---
Pharmacokinetic dosing service Date: 07/05/22 Time: 2344 Objective: Patient: Abdulkadir Hill Floor: ICU-7 Age: 51 yo Serum creatinine: 1.1 mg/dL Height: 58.0 Inches Weight (kg): 67.676 Diagnosis: Relevant medical/social history: Cultures and sensitivities: Other labs: Assessment: IBW (kg): 48.33 Dosing wt(kg): 67.676 Estimated Creatinine clearance (ml/min): 54.9 CRCL method: Cockcroft and Gault using ibw(default). Drug selected: Vancomycin Loading dose (mg): 0 Vd (liters): 60.9 (factor used: 0.9 L/kg) Jaime (hr-1): 0.050 Half life (hrs): 13.86 Recommended dose: 1250 mg Interval: 18 hrs Infusion time (hrs): 1.5 Predicted peak (mcg/mL): 33.3 Predicted trough (mcg/mL): 14.59 Total body weight is being used for vancomycin dosing. Renal function is stable [ ] /unstable [ ] Recommendations: Give Vancomycin 1250 mg q 18 hrs with an expected Cpeak of 33.3 mcg/ml and an expected Ctrough of 14.59 mcg/ml Renal dosing of other antibiotics (review renal dosing of other medications and list guidelines here): Thank you for the consult, will continue to follow. Signature: Amberly Porter [facility]
[2022-07-05] VITALS (25 sets, daily range): BP systolic 89–110; BP diastolic 64–84; PULSE 70–83; RESP 16–30; TEMP 37.1–37.7; O2SAT 85–99
[2022-07-05] MEDS: vancomycin 1,250 MG/250 ML PIGGYBACK 250 MG IV ×2 (01:38→18:02)
[2022-07-05] MEDS: piperacillin-tazobactam 3.375 GM in sodium chloride 0.9% (plus) 50 ML IV ×3 (01:38→15:04)
[2022-07-05 04:46] LABS: Basophils # 0.1 10^3/uL (0.0-0.1); Basophils % 0.3 %; Eosinophils % 0.1 %; Hemoglobin 14.4 g/dL (11.7-16.6); Lymphocytes # 0.7 10^3/uL (0.8-4.8); Lymphocytes % 2.8 %; Mean Corpuscular HGB Conc 31.3 g/dL (30.0-36.0); Mean Corpuscular Hemoglobin 33.2 pg (28.0-34.0); Mean Platelet Volume 9.8 fL (7.4-10.4); Monocytes % 8.1 %; Neutrophils # 21.45 10^3/uL (1.8-7.7); Nucleated Red Blood Cells % 0 %; Platelet Count 325 10^3/cmm (130-400); Red Blood Count 4.34 10^6/uL (4.1-5.3); Red Cell Distribution Width 14.9 % (12.1-15.1); White Blood Count 24.6 10^3/uL (4.0-10.0)
[2022-07-05 05:09] LABS: Blood Urea Nitrogen 21 mg/dL (6-20); Calcium 9.3 mg/dL (8.5-10.5); Carbon Dioxide 36 mmol/L (22-29); Glomerular Filtration Rate 79.1 mL/min (90-130); Glucose 128 mg/dL (65-115); Magnesium 2.1 mg/dL (1.7-2.3); Osmolality Calculated 319 mOsm/kg (285-295); Phosphorus 2.2 mg/dL (2.5-4.5); Sodium 152 mmol/L (136-145)
[2022-07-05 05:29] LABS: Anion Gap 12.8 (5-19); Chloride 106 mmol/L (98-107); Potassium 2.8 mmol/L (3.5-5.1)
--- NOTE | 2022-07-05 05:45 | PC.NURSE ---
Pt. has gone into v-tach/svt at rate of 180/200. O2 saturation low of 90% on 15L non rebreather mask. Nursing staff at bedside. 0549: 150mg Amiodarone push given per Dr. Milner order with heart rate 182 and blood pressure of 54/44 0550: heart rate is now 83 with blood pressure of 84/61 Family at bedside for this encounter
--- NOTE | 2022-07-05 05:47 | ECG_ITS ---
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 Measurements Intervals [place] Rate: 181 P: ME: QRS: 173 QRSD: 179 T: -74 QT: 292 QTc: 507 Interpretive Statements VENTRICULAR TACYCARDIA RIGHT AXIS DEVIATION [QRS AXIS > 100] RIGHT BUNDLE BRANCH BLOCK [120+ ms QRS DURATION, UPRIGHT V1, 40+ ms S IN I/aVL/V4/V5/V6] ST DEVIATION AND MODERATE T-WAVE ABNORMALITY, CONSIDER INFERIOR ISCHEMIA [-0.1+ mV T-WAVE IN II/aVF] Compared to ECG 07/03/2022 22:02:40 Right-axis deviation now present Right bundle-branch block now present Sinus tachycardia no longer present Ventricular premature complex(es) no longer present Intraventricular conduction delay no longer present Electronically Signed On 07-06-2022 14:36:20 CDT by Alo Doss M.D. [id number]
--- NOTE | 2022-07-05 05:52 | ECG_ITS ---
[facility] Test Date: 2022-07-05 Pat Name: Abdulkadir Hill Department: Room: ICU07 Gender: Male Medical Technologist: : 1970 Requested By: Neal Milner Order Number: [id number] Jeff MD: Alo Doss M.D. Measurements Intervals [place] Rate: 79 P: 40 HI: 153 QRS: 22 QRSD: 170 T: 62 QT: 421 QTc: 485 Interpretive Statements SINUS RHYTHM WITH FREQUENT VENTRICULAR PREMATURE COMPLEXES POSSIBLE LEFT ATRIAL ENLARGEMENT [-0.1mV P-WAVE IN V1/V2] LEFT BUNDLE BRANCH BLOCK [120+ ms QRS DURATION, 80+ ms Q/S IN V1/V2, 85+ ms R IN I/aVL/V5/V6] Compared to ECG 07/05/2022 05:47:53 Ventricular premature complex(es) now present Left bundle-branch block now present Right-axis deviation no longer present Right bundle-branch block no longer present T-wave abnormality no longer present Possible ischemia no longer present Electronically Signed On 07-06-2022 14:34:01 CDT by Alo Doss M.D. [id number]
[2022-07-05] MEDS: amiodarone 50 mg/mL SDV 3 mL 150 MG IVP (05:53)
[2022-07-05] MEDS: lidocaine 1% 5 ML in potassium chloride premix 100 ML 25 ML IV (05:53)
[2022-07-05 06:28] LABS: INR 7.74 (0.8-1.2)
--- NOTE | 2022-07-05 10:36 | PC.CHAP ---
Pastoral Care Encounter/Spiritual Assessment Type of Contact [] Declined hydraulic design engineer visit [] Patient/Family/Request visit [] Outpatient visit [] Follow-up visit [] Physician referral [] Code/Alert [x] Routine visit [] Staff referral [] Actively dying [x] Patient sleeping [x] Family support [] [] Out of room [] Palliative care [] [] Receiving care in room [] Pre-surgical visit [] Trauma [] Long length of stay [x] ICU visit [] Other: Relational/Emotional Strength [] Patient feels connected with others/family/visitors/staff [] Distress [] Loneliness/isolation [] Abandonment Spirituality of Patient [] Person of [place] [] Attends Quaker of their [place] [] Believes in Prayer [] Reads Bible or Latter-Day materials [] There are Spiritual issues to be addressed Director Patient Financial Services Interventions [x] Prayer [] Active listening [] Non-anxious presence [] Spiritual/emotional support [] Crisis/trauma care [] Spiritual counseling [] Bereavement support [] Provided bereavement packet [] Provided Bible/devotional materials [] Provided toy/stuffed animal, coloring book to patient or family member [] Provided Communion [] Anointing/[place] [] Salvation [x] Completed spiritual assessment [] Other: Impact on Illness or Injury [] Angry [] Fearful [] Anxious [] Often cries [] Exhaustion [] Unable to work [] Unable to attend yazidism [] Unable to walk/stand [] Unable to read [] Unable to drive [] Unable to eat/drink [] Unable to sleep [] Unable to be with family [] Patient intubated [] Other: Summary Time spent with patient
[2022-07-05] MEDS: pantoprazole 40 mg SDV IVP (15:04)
--- NOTE | 2022-07-05 17:19 | P.PN_ITS ---
Subjective Subjective: Aravind had another episode of arrhythmia this morning and received additional amiodarone. Continues to not really take much of anything by mouth. Fever has persisted. He continues to have moments that he is awake and seems back to his recent baseline which has been predominantly nonverbal. He has made some eye contact with his parents today. Despite this white count is not improved, with episode of tachycardia this morning he did have hypotension. INR continues to trend upward despite no further Coumadin being administered. No signs of bleeding. He remains on amiodarone drip. Lasix has been held due to hypokalemia and increasing sodium. Vitals/I&O/Wt Last Vital Signs Temp 99.1 F 07/05/22 16:00 Pulse 76 07/05/22 16:00 Resp 24 H 07/05/22 16:00 BP 103/70 07/05/22 16:00 Pulse Ox 95 07/05/22 16:00 O2 Del Method 07/05/22 07:51 O2 Flow Rate 15 07/05/22 07:51 FiO2 45 07/03/22 11:38 07/05/22 07/05/22 07/05/22 06:59 14:59 22:59 Intake Total 685 / 685 Output Total 450 / 925 300 / 300 Balance -450 / -404.397 685 / 685 -300 / 385 Weight last 48 hrs Weight 68.039 kg Weight 67.676 kg Physical Exam Narrative: Aravind is more awake today, appears to make some eye contact but remains nonverbal. Not really following any commands but does seem to acknowledge particularly his father's presence as well as his mother's. He c ontinues to have coughing but not producing much in the way of visible sputum. Coarse breath sounds remain decreased on the left. Currently regular rhythm. Abdomen is soft. Urinary Catheter Management: [place]: Cath Placed During This Visit: yes Reason for Continuing Indwelling Catheter: Accurate Measurement of Urinary Output in Critically Ill Patients Urinary Catheter Date of Insertion: 06/30/22 Data : 07/05/22 04:30 07/05/22 18:07 Other Labs: Laboratory Tests 07/05/22 07/05/22 04:30 04:30 INR 7.74 H* Phosphorus 2.2 L 07/05/22 04:30 Magnesium 2.1 Micro: Microbiology 07/04/22 13:10 Blood Culture - Preliminary Blood NEGATIVE TO DATE 07/04/22 13:15 Blood Culture - Preliminary Blood NEGATIVE TO DATE 07/04/22 05:35 Blood Culture - Preliminary Blood NEGATIVE TO DATE 07/04/22 05:33 Blood Culture - Preliminary Blood NEGATIVE TO DATE A&P Assessment and plan (1) Heart failure: Status: Acute (2) Seizures: Status: Acute (3) Normal pressure hydrocephalus: Status: Acute (4) DNR (do not resuscitate): Status: Acute (5) At risk for aspiration: Status: Acute (6) History of stroke: Status: Acute (7) H/O aortic valve replacement with porcine valve: Status: Acute (8) Non-verbal learning disorder: Status: Acute (9) Down syndrome: Status: Acute (10) Pneumonia: Status: Acute (11) Wide-complex tachycardia: Status: Acute Plan #Acute on chronic systolic congestive heart failure exacerbation Echocardiogram shows LVEF of 30%, global moderate hypokinesis with some regional variation. Severe hypokinesis of apical septal lateral jean. Bioprosthetic valve is noted. Lasix held today due to electrolyte abnormalities and overall volume status, negative close to 4 L for hospital stay and more euvolemic #Wide-complex tachycardia Has been a intermittent and more frequent issue for the last 2 days secondary to worsening respiratory status from pneumonia, electrolyte abnormalities, overall volume status Currently on an amiodarone drip and has received at least 2 pushes of amiodarone for heart rate greater than 200 #NSTEMI, type II Likely related to acute CHF exacerbation #Bilateral consolidation on CT of the chest. Also additional mucous plugging. At admission, felt to be aspirating given right-sided predominance on initial imaging review. Now with left sided consolidation that is worsening felt to be further aspiration versus possible bacterial infection On Zosyn day 5 and vancomycin day 2 Patient is at high risk of recurrent aspiration episodes Family has stated that feeding tube is not compatible with his overall goals of care Negative COVID PCR Blood cultures NGTD x2 sets #Chronically anticoagulated with warfarin due to DVT several months ago, presently with supratherapeutic INR that continues to increase the setting of antibiotics and clinical decline Warfarin on hold since admit due to supratherapeutic INR, check INR with a.m. labs. #History of Down syndrome #History cerebrovascular accident - parents unclear on details regarding this #Dementia Progressively worsening over the last year and a half #History of seizures On Dilatin #Total assist, Pina lift #Nonverbal #Aspiration risk #Poor oral intake Not taking oral intake consistently Family updated on findings today from labs We reviewed lack of significant improvement and signs of worsening Overall case and history over the last year reviewed with Dr. Lopez Further goals of care discussion today initially with patient's mother only and later with his mother, his father and his [id number] At this point in time we will continue current care as per these discussions. Plan, however, assuming no significant improvement, is for discharge to inpatient hospice on Saturday morning. Everyone is in agreement with this timeframe providing adequate opportunity, from family perspective, to see if Aravind will improve. Inpatient hospice will allow us to continue providing IV Dilantin which is important for supportive care in this situation based on history mother provided. Plan for inpatient hospice is 2 weeks and then disposition either home or [facility] at that time. With lack of oral intake, lack of clinical improvement and in fact signs of clinical worsening and progressive decline described over the last year or so I do not anticipate that patient will survive more than this timeframe, esepcially without nutritional source. Family is aware that with his CHF and other cardiac issues at high risk of arrhythmias including potential sudden . Timeframe chosen before transition to hospice inpatient is to provide a week of antibiotics for this first clear episode of aspiration pneumonia before family lets go. They want to ensure Aravind has been given opportunity to recover from the pneumonia with treatment initiated. Continuing current antibiotics Lasix is held Phenytoin continues On amiodarone drip Breathing treatments and suction as needed Continue Badillo catheter for comfort Allow Natural Attestations Medical Necessity Statement*: Requires ongoing inpatient stay for continued management of aspiration pneumonia and CHF both of which are contributing to wide-complex tachycardias either directly or indirectly via electrolyte abnormalities and such. This is the first episode of aspiration pneumonia that has required hospitalization. Overall prognosis is poor given comorbidities but given the acute infection component here completing course of antibiotics that can presently only be administered IV due to lack of oral intake necessitating inpatient management. Time Spent in Patient Care: Greater than 35 minutes (2.5 hours talking with mother, father, sister in law, case mangement, hospice nurse, hospice physican, nurse, respiratory, and primary care provider) (>than 50% of time spent in counselling and/or direct pt care on unit) . Coding Level of Care Code Acute Linter Saw Sharpener for Chg Fwd Diagnoses Heart failure I50.9 Seizures R56.9 Normal pressure hydrocephalus G91.2 DNR (do not resuscitate) Z66 At risk for aspiration Z91.89 History of stroke Z86.73 H/O aortic valve replacement with porcine valve Z95.3 Non-verbal learning disorder F81.89 Down syndrome Q90.9 Pneumonia J18.9 Wide-complex tachycardia I47.2
[2022-07-05] MEDS: lidocaine 1% 5 ML in potassium chloride premix 100 ML 50 ML IV (20:27)
[2022-07-06] VITALS (18 sets, daily range): BP systolic 99–142; BP diastolic 67–78; PULSE 75–87; RESP 16–37; TEMP 37.2–38.3; O2SAT 88–99
[2022-07-06] MEDS: piperacillin-tazobactam 3.375 GM in sodium chloride 0.9% (plus) 50 ML IV ×4 (01:38→23:53)
--- NOTE | 2022-07-06 10:25 | P.PN_ITS ---
Subjective Subjective: Remains on nonrebreather this morning with continued low oxygen levels. No arrhythmias overnight beyond occasional increased frequency of PVCs that I can discern. Did not require any extra pushes of amiodarone. No oral intake overnight. Continues to have frequent fever and associated flushing but blood pressures are stable. Movement since 2 days ago. Has not had suppository yet today. Vitals/I&O/Wt Last Vital Signs Temp 100.5 F H 07/06/22 08:00 Pulse 87 07/06/22 08:00 Resp 36 H 07/06/22 08:00 BP 126/77 07/06/22 08:00 Pulse Ox 88 L 07/06/22 08:00 O2 Del Method 07/06/22 08:00 O2 Flow Rate 15 07/06/22 08:00 FiO2 45 07/03/22 11:38 07/05/22 07/06/22 07/06/22 22:59 06:59 14:59 Intake Total 50 / 735 518 / 1253 405 / 405 Output Total 300 / 300 350 / 650 Balance -250 / 435 168 / 603 405 / 405 Weight last 48 hrs Weight 68.492 kg Weight 68.039 kg Physical Exam Narrative: Abdulkadir is awake today and looking around. At the time of my evaluation not flushed. Coarse breath sounds left more so than the right with scattered rhonchi and some upper airway noise. Currently regular rhythm. Abdomen is soft though a bit more distended than yesterday, positive bowel sounds, no apparent tenderness, Badillo catheter in place with darker yellow urine. We will turn his head at the sound of his mother's voice. No abnormal movements currently. Urinary Catheter Management: Badillo: Cath Placed During This Visit: yes Reason for Continuing Indwelling Catheter: Accurate Measurement of Urinary Output in Critically Ill Patients Urinary Catheter Date of Insertion: 06/30/22 Data : 07/05/22 04:30 07/05/22 18:07 Micro: Microbiology 07/04/22 13:10 Blood Culture - Preliminary Blood NEGATIVE TO DATE 07/04/22 13:15 Blood Culture - Preliminary Blood NEGATIVE TO DATE 07/04/22 05:35 Blood Culture - Preliminary Blood NEGATIVE TO DATE 07/04/22 05:33 Blood Culture - Preliminary Blood NEGATIVE TO DATE A&P Assessment and plan (1) Heart failure: Status: Acute (2) Seizures: Status: Acute (3) Normal pressure hydrocephalus: Status: Acute (4) DNR (do not resuscitate): Status: Acute (5) At risk for aspiration: Status: Acute (6) History of stroke: Status: Acute (7) H/O aortic valve replacement with porcine valve: Status: Acute (8) Non-verbal learning disorder: Status: Acute (9) Down syndrome: Status: Acute (10) Pneumonia: Status: Acute (11) Wide-complex tachycardia: Status: Acute Plan #Acute on chronic systolic congestive heart failure exacerbation Echocardiogram shows LVEF of 30%, global moderate hypokinesis with some regional variation. Severe hypokinesis of apical septal lateral jean. Bioprosthetic valve is noted. Lasix held 07/05 due to electrolyte abnormalities and overall volume status, negative close to 2.7 L for hospital stay. #Wide-complex tachycardia Has been a intermittent issue seciondary to worsening respiratory status from pneumonia, electrolyte abnormalities, overall volume status Currently on an amiodarone drip and has received at least 3 pushes of amiodarone for heart rate greater than 200 Discussed with patient's mother today that at this point in time if he has is having recurrent significant arrhythmias that are associated with drop in heart rate, aggressive measures including pharmacological are considered life-niecy taining. She seemed to understand this though as with everything and is challenged by the concept of not doing something for her son if he is having a problem. She was in agreement with plan to continue amiodarone drip at current rate as a means of helping Abdulkadir get to a place that he can receive a full course of treatment attempt for the pneumonia. We can try a dose of metoprolol IV if needed for tachycardia but if no response with this will focus will become on ensuring Abdulkadir is comfortable. Related to combination of CHF exacerbation, worsening pneumonia and electrolyte abnormalities #Bilateral consolidation on CT of the chest. Also additional mucous plugging. At admission, felt to be aspirating given right-sided predominance on initial imaging review. Now with left sided consolidation that is worsening felt to be further aspiration. Blood cultures are no growth to date. Have been unable to get sputum cultures. On Zosyn day 5 and vancomycin day 3 Patient is at high risk of recurrent aspiration episodes but at this point in time we are allowing attempts of feeding with thickened liquids/level 4 dysphagia if he will accept Family has stated that feeding tube is not compatible with his overall goals of care Negative COVID PCR Blood cultures NGTD x2 sets #Chronically anticoagulated with warfarin due to DVT several months ago, presently with supratherapeutic INR that continues to increase the setting of antibiotics and clinical decline Warfarin on hold since admit due to supratherapeutic INR #History of Down syndrome #History cerebrovascular accident - parents unclear on details regarding this #Dementia Progressively worsening over the last year and a half #History of seizures On Dilatin IV #Total assist, Pina lift #Nonverbal #Aspiration risk #Poor oral intake Not taking oral intake consistently Spoke with Abdulkadir's mother only today. She seems to be doing better in the sense that she is less outwardly anxious today. We talked for quite some time with TIFFANIE and Darlene, nursing staff, also in the room. Answered her questions regarding arrhythmias, why they occur, what we usually do to treat them and what we are doing for Abdulkadir. Again reviewed pneumonia being present in both lungs, increasing need for oxygen and persistent fevers despite treatment. We talked about the risk of attempting thickened liquids or dysphagia for diet including worsening of aspiration. We reviewed decreased nutrition and hydration as well as voiding and stooling patterns. Questions today were more focused on how all of these things can be indicators of organ dysfunction related either to acute CHF and pneumonia but also progressive patterns of decline seen with dementia. Plan remains to continue current antibiotic treatment through Saturday to allow adequate opportunity for antibiotics to potentially treat pneumonia. Assuming no significant improvement, Abdulkadir will be discharged to inpatient hospice here on Saturday for up to 2 weeks of care in the inpatient setting. After that timeframe disposition will be to [facility]. Continuing current antibiotics for aspiration pneumonia coverage Lasix is held, but can be given for acute respiratory distress if needed Phenytoin IV continues for known seizure disorder On amiodarone drip due to wide-complex tachycardia; at this point in time will not administer any further pushes of amiodarone or increased rate of drip. If recurrent tacky arrhythmias IV metoprolol can be tried but if not responsive focus will be on ensuring Abdulkadir is comfortable as per discussion with Mei Abdulkadir's mother today Breathing treatments and suction as needed and tolerated Adjust oxygen therapy delivery for comfort particularly at the bridge of his nose We will add IV Tylenol given national shortage of adult acetaminophen suppositories Avoiding aspirin suppository secondary to elevated INR Continue Badillo catheter for comfort Suppositories every other day if no bowel movement Plan of care and current goals of care were reviewed with nursing staff Allow Natural Attestations Medical Necessity Statement*: Requires ongoing inpatient care for continued treatment as outlined above. While overall prognosis is poor in this setting, and we have an outlined goal for transition to inpatient hospice care in the next couple of days, providing adequate opportunity for appropriate course of antibiotic treatment for his acute aspiration pneumonia is the right thing to do for both Abdulkadir and his family, especially his mother. Every day it is becoming more apparent to her that Abdulkadir is not going to recover sufficiently enough to even have adequate hydration and nutrition going forward regardless of what we might do for him. Time Spent in Patient Care: Greater than 35 minutes (50) (>than 50% of time spent in counselling and/or direct pt care on unit) . Coding Level of Care Code Acute Wet Room Worker for Chg Fwd Diagnoses Heart failure I50.9 Seizures R56.9 Normal pressure hydrocephalus G91.2 DNR (do not resuscitate) Z66 At risk for aspiration Z91.89 History of stroke Z86.73 H/O aortic valve replacement with porcine valve Z95.3 Non-verbal learning disorder F81.89 Down syndrome Q90.9 Pneumonia J18.9 Wide-complex tachycardia I47.2
--- NOTE | 2022-07-06 11:49 | PC.CHAP ---
Pastoral Care Encounter/Spiritual Assessment Type of Contact [] Declined bond broker visit [] Patient/Family/Request visit [] Outpatient visit [] Follow-up visit [] Physician referral [] Code/Alert [x] Routine visit [] Staff referral [] Actively dying [] Patient sleeping [x] Family support [] [] Out of room [] Palliative care [] [] Receiving care in room [] Pre-surgical visit [] Trauma [] Long length of stay [x] ICU visit [x] Other: patient to be kept comfortable Relational/Emotional Strength [] Patient feels connected with others/family/visitors/staff [] Distress [] Loneliness/isolation [] Abandonment Spirituality of Patient [] Person of [place] [] Attends Scientologist of their [place] [] Believes in Prayer [] Reads Bible or Voodoo materials [] There are Spiritual issues to be addressed Patient Relations Manager Interventions [x] Prayer [] Active listening [] Non-anxious presence [] Spiritual/emotional support [] Crisis/trauma care [] Spiritual counseling [] Bereavement support [] Provided bereavement packet [] Provided Bible/devotional materials [] Provided toy/stuffed animal, coloring book to patient or family member [] Provided Communion [] Anointing/Ute [] Salvation [x] Completed spiritual assessment [] Other: Impact on Illness or Injury [] Angry [] Fearful [] Anxious [] Often cries [] Exhaustion [] Unable to work [] Unable to attend adventism [] Unable to walk/stand [] Unable to read [] Unable to drive [] Unable to eat/drink [] Unable to sleep [] Unable to be with family [] Patient intubated [] Other: Summary Time spent with patient
[2022-07-06] MEDS: vancomycin 1,250 MG/250 ML PIGGYBACK 250 MG IV (12:27)
[2022-07-06] MEDS: acetaminophen 1,000 MG/100 ML PIGGYBACK 400 MG IV (13:56)
[2022-07-06] MEDS: pantoprazole 40 mg SDV IVP (15:41)
[2022-07-06] MEDS: morphine 10 mg/0.5 mL oral liq UD 5 MG PO ×3 (20:57→23:53)
[2022-07-07] VITALS (29 sets, daily range): BP systolic 120–149; BP diastolic 65–98; PULSE 77–101; RESP 18–34; TEMP 38.1–38.6; O2SAT 88–97
[2022-07-07] MEDS: morphine 10 mg/0.5 mL oral liq UD 5 MG PO ×3 (01:27→05:15)
[2022-07-07] MEDS: acetaminophen 1,000 MG/100 ML PIGGYBACK 400 MG IV (03:21)
[2022-07-07] MEDS: vancomycin 1,250 MG/250 ML PIGGYBACK 250 MG IV (05:15)
[2022-07-07 05:50] LABS: Vancomycin Trough 17.1 ug/mL (10-15)
[2022-07-07] MEDS: piperacillin-tazobactam 3.375 GM in sodium chloride 0.9% (plus) 50 ML IV (08:56)
--- NOTE | 2022-07-07 15:29 | P.PN_ITS ---
Subjective Subjective: Abdulkadir had an episode of increased respiratory distress last evening. Heart rate and blood pressure were okay but oxygen saturations did drop. He was given 1 dose of Roxanol with improvement. He is on high flow oxygen today. Has not been responsive to parents but did awaken while I was in the room in terms of opening his eyes. Minimal response to his father. Abdulkadir's parents are both understanding more each day that he is not recovering. They had multiple questions about his current status, how he is doing and how things might progress from here. All questions were answered with nursing staff in the room. Support was provided. Vitals/I&O/Wt Last Vital Signs Temp 100.6 F H 07/07/22 08:00 Pulse 81 07/07/22 13:00 Resp 23 H 07/07/22 13:00 BP 120/70 07/07/22 13:00 Pulse Ox 92 07/07/22 13:00 O2 Del Method 07/07/22 12:00 O2 Flow Rate 10 07/07/22 12:00 FiO2 45 07/03/22 11:38 07/07/22 07/07/22 07/07/22 06:59 14:59 22:59 Intake Total 756.338 / 1631.338 70.0 / 70.0 Output Total 300 / 650 Balance 456.338 / 981.338 70.0 / 70.0 Weight last 48 hrs Weight 68.492 kg Physical Exam Narrative: Abdulkadir was unresponsive with eyes closed upon my entry into the room. During conversation with family, he opened his eyes. Upon awakening respiratory rate improved. He has some mild supraclavicular and intercostal retractions and belly breathing noted. Keeping his mouth open. Moisture was applied via sponge to his mucosal surfaces which are dry. He has a regular rhythm. Coarse breath sounds with shallow respirations. Badillo with about 150 mL of dark yellow urine. Urinary Catheter Management: Badillo: Cath Placed During This Visit: yes Reason for Continuing Indwelling Catheter: Other Urinary Catheter Date of Insertion: 06/30/22 Data : 07/05/22 04:30 07/05/22 18:07 Micro: Microbiology 07/01/22 12:48 Blood Culture - Final Blood NO GROWTH AFTER 5 DAYS 07/01/22 12:47 Blood Culture - Final Blood NO GROWTH AFTER 5 DAYS A&P Assessment and plan (1) Heart failure: Status: Acute Qualifiers: Heart failure type: systolic Heart failure chronicity: acute on chronic Qualified Code(s): I50.23 - Acute on chronic systolic (congestive) heart failure (2) Pneumonia: Status: Acute Qualifiers: Pneumonia type: aspiration pneumonia Aspiration pneumonia type: due to regurgitated food Laterality: bilateral Lung location: lower lobe of lung Qualified Code(s): J69.0 - Pneumonitis due to inhalation of food and vomit (3) NSTEMI (non-ST elevated myocardial infarction): Status: Acute (4) Inadequate oral nutritional intake: Status: Acute (5) Wide-complex tachycardia: Status: Acute (6) Supratherapeutic INR: Status: Acute (7) H/O deep venous thrombosis: Status: Chronic (8) H/O aortic valve replacement with porcine valve: Status: Chronic (9) Seizures: Status: Chronic (10) Normal pressure hydrocephalus: Status: Chronic (11) History of stroke: Status: Chronic (12) At risk for aspiration: Status: Acute (13) Down syndrome: Status: Chronic (14) Dementia: Status: Chronic Qualifiers: Dementia type: Alzheimer's Alzheimer's disease onset: early-onset Dementia behavioral disturbance: without behavioral disturbance Qualified Code(s): G30.0 - Alzheimer's disease with early onset; F02.80 - Dementia in other diseases classified elsewhere without behavioral disturbance (15) Non-verbal learning disorder: Status: Chronic (16) DNR (do not resuscitate): Status: Acute Plan Stop amiodarone drip Change lasix to prn respiratory distress not alleviated with other medications Stop antibiotics Continue IV Dilantin Breathing treatments and suction as needed and tolerated Cotninue current oxygen therapy, no escalation, may wean IV tylenol for fever and pain Roxinol, ativan, atropine drops, glycopyrrolate as needed Continue Badillo catheter for comfort Suppositories every other day if no bowel movement for comfort Other supportive measures for patient and family as needed Plan of care and current goals of care were reviewed with nursing staff Plan discharge to inpatient hospice if no change next 24-48 hours. Timeframe for inpatient hospice up to 2 weeks and after that disposition will be back to [facility] or home with end of life/hospice care Allow Natural Attestations Medical Necessity Statement*: Requires ongoing stay to complete course of treatment allowing potential recovery. Anticipate transition to inpatient hospice next 24-48 hours. Time Spent in Patient Care: Greater than 35 minutes (45) (>than 50% of time spent in counselling and/or direct pt care on unit) . Coding Level of Care Code Acute Special Education Bus Driver for Chg Fwd Diagnoses Heart failure I50.23 Heart failure type: systolic Heart failure chronicity: acute on chronic Pneumonia J69.0 Pneumonia type: aspiration pneumonia Aspiration pneumonia type: due to regurgitated food Laterality: bilateral Lung location: lower lobe of lung NSTEMI (non-ST elevated myocardial infarction) I21.4 Inadequate oral nutritional intake E63.9 Wide-complex tachycardia I47.2 Supratherapeutic INR R79.1 H/O deep venous thrombosis Z86.718 H/O aortic valve replacement with porcine valve Z95.3 Seizures R56.9 Normal pressure hydrocephalus G91.2 History of stroke Z86.73 At risk for aspiration Z91.89 Down syndrome Q90.9 Dementia G30.0; F02.80 Dementia type: Alzheimer's Alzheimer's disease onset: early-onset Dementia behavioral disturbance: without behavioral disturbance Non-verbal learning disorder F81.89 DNR (do not resuscitate) Z66
--- NOTE | 2022-07-07 18:23 | PC.NURSE ---
SHIFT SUMMARY: PT HAS HAD AN UNEVENTFUL SHIFT. PT HAS RESTED IN BED ALL DAY AND HAS BEEN MOSTLY UNRESPONSIVE. DR. BRASHER AWARE. FAMILY REQUESTS FOR PT TO BE COMFORTABLE. PT HAS APPEARED COMFORTABLE TO THIS NURSE. PTS VITALS DO NOT REPRESENT ANY EVIDENCE OF PT BEING IN PAIN. PT HAS BEEN A LITTLE TACHYPNEIC WITH RESPIRATIONS RANGING FROM 20-24. PT HAS NOT BEEN IN ANY DISTRESS THOUGH. PT IS HAVING SHALLOW RESPIRATIONS. PT IS ON 10L HI-FLOW NC SATING 90-93%. ALL OTHER VITALS HAVE BEEN WNL. PT IS CURRENTLY RESTING IN BED. FAMILY HAS NO REQUESTS AT THIS TIME. WILL CONTINUE TO MONITOR.
[2022-07-07] MEDS: glycopyrrolate 0.2 mg/mL SDV 2 mL IV (20:40)
--- NOTE | 2022-07-07 20:48 | PC.NURSE ---
SpO2 dropped to 85%. Per family request, switched pt from high flow nasal canual 10L to non-rebreather 10L. SpO2 90%. Family expressed concern that pt was struggling to breath. Administered medication for secretions. Called RT to update.
[2022-07-08] VITALS (29 sets, daily range): BP systolic 95–152; BP diastolic 41–85; PULSE 0–118; RESP 0–42; TEMP 36.8–39.8; O2SAT 83–94
[2022-07-08] MEDS: glycopyrrolate 0.2 mg/mL SDV 2 mL IV ×3 (00:53→11:09)
[2022-07-08] MEDS: acetaminophen 1,000 MG/100 ML PIGGYBACK 400 MG IV ×2 (01:04→21:47)
--- NOTE | 2022-07-08 01:24 | PC.NURSE ---
Addendum entered by Maryjo Kuo RN 07/08/22 04:16: Dr. Milner notified of increasing temp @0300. No new orders at this time Axillary Temp @0400 is 103.0. Ice packs applied to underarms and groin, room temperature turned down, sheet removed, fan in room. Original Note: 102.1 Temp @0050 Removed blanket from pt and gave IV Tylenol.
[2022-07-08] MEDS: morphine 10 mg/0.5 mL oral liq UD 5 MG PO ×4 (01:38→21:21)
[2022-07-08] MEDS: ketorolac 30 mg/mL INJ 15 MG IVP ×2 (04:52→19:47)
[2022-07-08 05:41] LABS: Blood Urea Nitrogen 27 mg/dL (6-20); Calcium 9.3 mg/dL (8.5-10.5); Carbon Dioxide 29 mmol/L (22-29); Chloride 115 mmol/L (98-107); Glomerular Filtration Rate 58.4 mL/min (90-130); Glucose 108 mg/dL (65-115); Osmolality Calculated 332 mOsm/kg (285-295); Sodium 158 mmol/L (136-145)
--- NOTE | 2022-07-08 06:23 | PC.NURSE ---
Shift Summary: pt has had shallow respirations at a RR 30 w/ abd and acessory muscle use. rochi upon auscultation of the lungs- gave robinol and atropine for secretions. gave roxanol for air hunger. Pt has been febrile throughout the shift. Last temperature was 100.0. Interventions to lower temperature are still in place. family members stayed at the bedside throughout the night.
--- NOTE | 2022-07-08 15:55 | P.PN_ITS ---
Subjective Subjective: Pharmacy ordered laboratory studies this morning. Results are noted and expected. He has continued to have fever. More tachycardic today even when afebrile. Remains unresponsive and color is worse today. No oral intake and decreased urine output. Respirations are slowly increasing. Blood pressure is maintaining. Saturations are staying around 90% on 45% FiO2. Vitals/I&O/Wt Last Vital Signs Temp 98.6 F 07/08/22 12:00 Pulse 101 H 07/08/22 12:00 Resp 30 H 07/08/22 12:00 BP 134/85 07/08/22 12:00 Pulse Ox 92 07/08/22 12:00 O2 Del Method 07/08/22 12:00 O2 Flow Rate 10 07/08/22 12:00 FiO2 45 07/03/22 11:38 07/08/22 07/08/22 07/08/22 06:59 14:59 22:59 Intake Total 100 / 422.718 Output Total 475 / 475 Balance -375 / -52.282 Weight last 48 hrs Weight 67.585 kg Physical Exam Narrative: Abdulkadir is color is less saturated than it was yesterday, paler. Nonresponsive to stimuli though his eyes are open and occasionally blink. Keeping his mouth open. Mucous membranes are dry. Shallow respirations with tachypnea, supraclavicular and suprasternal notch retractions as well as intercostal retractions noted, belly breathing apparent. Tachycardic regular rhythm. Abdomen soft, decreased bowel sounds. Capillary refill greater than 3 seconds, tips of fingers slightly cyanotic. Occasional clonic type movements. Urinary Catheter Management: [place]: Cath Placed During This Visit: yes Reason for Continuing Indwelling Catheter: Accurate Measurement of Urinary Output in Critically Ill Patients Urinary Catheter Date of Insertion: 06/30/22 Data : 07/05/22 04:30 07/08/22 04:05 A&P Assessment and plan (1) Heart failure: Status: Acute Qualifiers: Heart failure chronicity: acute on chronic Heart failure type: systolic Qualified Code(s): I50.23 - Acute on chronic systolic (congestive) heart failure (2) Pneumonia: Status: Acute Qualifiers: Aspiration pneumonia type: due to regurgitated food Laterality: bilateral Lung location: lower lobe of lung Pneumonia type: aspiration pneumonia Qualified Code(s): J69.0 - Pneumonitis due to inhalation of food and vomit (3) NSTEMI (non-ST elevated myocardial infarction): Status: Acute (4) Inadequate oral nutritional intake: Status: Acute (5) Wide-complex tachycardia: Status: Acute (6) Supratherapeutic INR: Status: Acute (7) H/O deep venous thrombosis: Status: Chronic (8) H/O aortic valve replacement with porcine valve: Status: Chronic (9) Seizures: Status: Chronic (10) Normal pressure hydrocephalus: Status: Chronic (11) History of stroke: Status: Chronic (12) At risk for aspiration: Status: Acute (13) Down syndrome: Status: Chronic (14) Dementia: Status: Chronic Qualifiers: Alzheimer's disease onset: early-onset Dementia behavioral disturbance: without behavioral disturbance Dementia type: Alzheimer's Qualified Code(s): G30.0 - Alzheimer's disease with early onset; F02.80 - Dementia in other diseases classified elsewhere without behavioral disturbance (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 Everyone can visibly see the progressive decline. We reviewed current condition including laboratory findings from pharmacy ordered study today, vital signs since middle of the night last night and physical exam findings at the present. Discussed how nursing and other staff will respond to progressive decline with a focus on keeping Abdulkadir comfortable rather than trying to correct abnormalities noted such as abnormal heart rhythms. Answered questions regarding discomfort that Abdulkadir might feel and how we manage that. Also reminded everyone that Abdulkadir has received a full week of treatment for chf and pneumonia without any clinical improvement within the goals of care and treatment plan felt acceptable for Abdulkadir. Again reviewed plans for transition to inpatient hospice and this time everyone is in agreement with plans. Patient's mother today is able to verbalize that when Abdulkadir dies it will be a blessing for him as he will no longer be suffering in the way he has. I did not actually expect to hear this from his mother based on prior conversations. All family members were given an opportunity to ask questions that were answered and support was given. Comfort measures only Less than 6 months to live and expect patient will only survive another few weeks at most, likely a matter of days given aspiration pneumonia, dysphagia and inability to sustain nutritional intake, acute on chronic CHF, advanced Alzheimer's dementia associated with Down syndrome along with comorbid history as described Continue IV Dilantin given history of seizures and report that dilatin is only m edication found to control his seizures previously Continue current oxygen therapy, no escalation, weaning planned with admission to inpatient hospice IV lasix and breathing treatments as needed for respiratory distress IV tylenol for fever and pain Okay to use IV toradol if needed for persistent fever >101.5 after IV tylenol Roxinol, ativan, atropine drops, glycopyrrolate as needed Continue Badillo catheter for comfort Suppositories every other day if no bowel movement for comfort Supportive measures for family Plan of care and current goals of care were reviewed with family and nursing staff Comfort care only Plan discharge to inpatient hospice in the morning. Timeframe for inpatient hospice up to 2 weeks and after that disposition will be back to [facility] or home with end of life/hospice care. Allow Natural Attestations Medical Necessity Statement*: Ongoing stay for planned transition to inpatient hospice given history of seizures only controlled with IV dilatin and comorbid conditions. Severe dysphagia limiting non-IV comfort medication options. Time Spent in Patient Care: Greater than 35 minutes (40 minutes) (>than 50% of time spent in counselling and/or direct pt care on unit) . 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[employer] [facility] Diagnoses Heart failure I50.23 Heart failure chronicity: acute on chronic Heart failure type: systolic Pneumonia J69.0 Aspiration pneumonia type: due to regurgitated food Laterality: bilateral Lung location: lower lobe of lung Pneumonia type: aspiration pneumonia NSTEMI (non-ST elevated myocardial infarction) I21.4 Inadequate oral nutritional intake E63.9 Wide-complex tachycardia I47.2 Supratherapeutic INR R79.1 H/O deep venous thrombosis Z86.718 H/O aortic valve replacement with porcine valve Z95.3 Seizures R56.9 Normal pressure hydrocephalus G91.2 History of stroke Z86.73 At risk for aspiration Z91.89 Down syndrome Q90.9 Dementia G30.0; F02.80 Alzheimer's disease onset: early-onset Dementia behavioral disturbance: without behavioral disturbance Dementia type: Alzheimer's Non-verbal learning disorder F81.89 DNR (do not resuscitate) Z66
[2022-07-08] MEDS: LORazepam 2 mg/mL INJ 1 mL 0.5 MG IVP (21:12)
--- NOTE | 2022-07-08 23:09 | PC.NURSE ---
MTS Pt not candidate for MTS donation, pt still candidate for [facility].
--- NOTE | 2022-07-08 23:32 | PC.NURSE ---
Approximately 2227 Mr. Hill's Respirations slowed to a stop and Darvin RN and Lidya RN entered the room. Patient's family was present at bedside. Darvin RN and Lidya RN checked left and right radial pulse as heart rate continued to drop on the monitor. Patient became Asystole at 0. Apical Heart rate was auscultated for 60 seconds. Family remained at bedside until 2314. Dr. Santana was notified of patient's passing along with Hospitalist oracle scm consultant and glazing department supervisor. It was determined that patient was not a suitable donor. Family signed Body Transfer form for [facility]. Body was bathed and lines removed prior to calling home for transfer. No personal belongings were left with or on patient.
--- NOTE | 2022-07-15 15:15 | P.DES_ITS ---
Discharge Providers DDS Date of Admission: 06/30/22 18:32 Date Summary Completed: 07/15/22 Attending Provider at Admission: Lenora Dowd MD Time of : 22:28 Attending Provider at Discharge: Anusha Santana MD Pronouncing Clinician: Darvin Conteh Consults: Dr. Stark, Cardiology Primary Care Provider: Jeison Lopez MD DS Diagnoses Probable Cause of Aspiration pneumonia Hospital Diagnoses (1) Pneumonia: Details from hospital stay: Primary cause of in setting of clear aspiration, inability to tolerate oral intake, intermittent wide complex tachycardia from respiratory and cardiovascular compromise, overall general decline in preceding months in a patient with Down's syndrome, chronic systolic CHF, aortic valve replacement, Alzheimer's dementia, seizure disorder and prior stroke. Qualifiers: Aspiration pneumonia type: due to regurgitated food Laterality: bilateral Lung location: lower lobe of lung Pneumonia type: aspiration pneumonia Qualified Code(s): J69.0 - Pneumonitis due to inhalation of food and vomit (2) Heart failure: Qualifiers: Heart failure chronicity: acute on chronic Heart failure type: systolic Qualified Code(s): I50.23 - Acute on chronic systolic (congestive) heart failure (3) NSTEMI (non-ST elevated myocardial infarction): Details from hospital stay: Type 2 process secondary to above (4) Inadequate oral nutritional intake: (5) Wide-complex tachycardia: (6) Supratherapeutic INR: Details from hospital stay: From anticoagulation prior to admission in setting of acute conditions and antibiotic therapy; on for history of DVT preceding admission (7) H/O deep venous thrombosis: Details from hospital stay: Prior to admission (8) H/O aortic valve replacement with porcine valve: (9) Seizures: (10) Normal pressure hydrocephalus: (11) History of stroke: (12) At risk for aspiration: (13) Down syndrome: (14) Dementia: Qualifiers: Alzheimer's disease onset: early-onset Dementia behavioral disturbance: without behavioral disturbance Dementia type: Alzheimer's Qualified Code(s): G30.0 - Alzheimer's disease with early onset; F02.80 - Dementia in other diseases classified elsewhere without behavioral disturbance (15) Non-verbal learning disorder: (16) DNR (do not resuscitate): Reason for Visit Reason for Visit INCREASING WEAKNESS AND LETHARGY Brief History: Abdulkadir Hill is a 51 year old male with past medical history of Down syndrome, bioprosthetic aortic valve replacement 2004, stroke presented to the hospital today for senior living for increasing lethargy weakness poor oral intake, he is getting more short of breath and now requiring 3 L of oxygen.? History is obtained from both parents.? Present at bedside.? He states that he lives in a senior living.? He was hospitalized at [facility] in September 2021 for normal pressure hydrocephalus and he had a lumbar puncture.? After lumbar puncture they state that he remained sedated for 30 hours.? He did not wake up.? Ever since that time he has become nonverbal and is a complete assist with Pina lift.? They believe he might of had a stroke during that time.? Patient remained in ICU for greater than 7 days during the hospital stay.? He states that he has a history of heart failure as well and that he is on Lasix however do not know the degree of heart failure.? They state usually whenever you bring a spoon Close to his mouth he will open his mouth and eat and eventually swallow the bite however lately has not been doing that either.? They also noticed that when they tried to give him a water sponge today to get his labs he almost started coughing and choking on the water.? They said that for the last few weeks he has been deteriorating.? Prior to his hospitalization in September he was working, had a job, was completely independent.? Denies nausea, vomiting, diarrhea, constipation.? Patient is unable to provide any history and is currently on BiPAP.? He cannot follow any commands and does not respond to any questions. Summary Date and Time of Date of : 07/08/22 Time of : 22:28 Summary Summary: Abdulkadir Hill presented to the emergency room with increasing shortness of breath and oxygen requirement as well as progressive lethargy and weakness along with poor oral intake. Symptoms had been progressing for a couple of weeks prior to admission. He had had significant decline for about a year or so. Medical history includes Down syndrome, Alzheimer's dementia, aortic valve replacement, normal pressure hydrocephalus, seizures, history of DVT, probable prior stroke and chronic systolic heart failure. At admission clinically felt to have acute on chronic CHF (ejection fraction 30%) and type II non-ST elevation UT along with Aspiration pneumonia. He had had minimal oral intake for some time, coughing and choking with oral intake at at admission, predominantly right-sided opacities noted on imaging. He was treated with diuretic therapy and antibiotics. During the course of care he developed a wide-complex tachycardia intermittently and was started on amiodarone drip. Oral intake continued to be poor despite attempts at thickened liquids. There was evidence of holding what was given in his mouth as well as ongoing aspiration. He developed worsening pneumonia with additional left-sided consolidation. Antibiotics and pulmonary toilet as well as oxygen therapy were continued. Abdulkadir showed no signs of improvement. Multiple discussions were had regarding goals of care. Feeding tube placement for nutrition and med ications was not a consideration for Abdulkadir nor was any invasive or aggressive management. He was given a course of therapy with an opportunity at chance for recovery but given continued lack of any improvement or ability to consume sustaining oral nutrition and medications, eventually the very hard yet appropriate decision for transition to hospice and comfort care was made. One of the family's significant concerns was that without being able to take medications by mouth, he would not be able to get his seizure medication. Historically, per his mother, without his Dilantin he seizes. Case was discussed with inpatient hospice who did accept Abdulkadir. Before this could be finalized, however, Abdulkadir had rapid decline throughout the day on 07/08 and with his parents at his bedside on at 10:28 pm that day. Additional Data Confirmation of as documented by pronouncing clinician: no pulse, no respirations, no heart sounds and pupils fixed and dilated Family: at bedside Additional persons at bedside: nursing staff Attending/PCP notified?: Attending will be notified Was code activated?: No Autopsy requested?: No Advance directives?: No (not but AND and comfort care per discussions with parents) Hospice patient?: Yes (Accepted at pt, but had not been formally transitioned to hospice service) Discharge Plan Discharge Patient Disposition: At Medical Facility Condition: Prescriptions: Discontinued Lasix 40 mg Tablet 40 mg PO DAILY Tylenol 325 mg Tablet 650 mg PO Q6H PRN (Reason: Pain) cyanocobalamin (vitamin B-12) 1,000 mcg Tablet 1,000 mcg PO DAILY potassium chloride 10 mEq Tablet Extended Release 10 meq PO BID melatonin 3 mg Tablet 1.5 mg PO BEDTIME Dilantin Infatabs 50 mg Tablet,Chewable 150 mg PO BID Milk of Magnesia 400 mg/5 mL Suspension 30 ml PO DAILY PRN (Reason: Constipation) Dulcolax (bisacodyl) 10 mg Suppository 10 mg WI DAILY PRN (Reason: Constipation) warfarin 1 mg Tablet See Rx Instructions .ROUTE .COMPLEX Rx Instructions: 1.5 mg orally daily except on Sundays Zofran ODT 4 mg Tablet,Disintegrating 4 mg PO Q4H PRN (Reason: Nausea) lorazepam 2 mg/mL Concentrate 1 mg PO Q3H PRN (Reason: Agitation) Metamucil (with sugar) 3 gram/7 gram Powder 1 tbsp PO DAILY Rx Instructions: may increase to twice daily if needed Activity Restrictions/Additional Instructions: Patient Probable Cause of Probable cause of : Aspiration pneumonia DS Attestations Time Spent in /Discharge Care*: greater than 30 min Quality - AMI: AMI present?: Yes Contraindication for Aspirin: Treatment not indicated Contraindication for No Fibrinolytic Therapy: Treatment not indicated Contraindication for Statin: Treatment not indicated Quality - Stroke: CVA present?: No Quality - VTE: VTE present?: Yes Contraindication No VTE Prophylaxis: Medical contraindication Documentation of Mechanical Device: Intermittent pneumatic compression sleeve Contraindication No Overlap Therapy: Medical contraindication Deep Vein Thrombosis/Pulmonary Embolism Present on Admission: Yes Coding Level of Care Code 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 [facility] Diagnoses Pneumonia J69.0 Aspiration pneumonia type: due to regurgitated food Laterality: bilateral Lung location: lower lobe of lung Pneumonia type: aspiration pneumonia Heart failure I50.23 Heart failure chronicity: acute on chronic Heart failure type: systolic NSTEMI (non-ST elevated myocardial infarction) I21.4 Inadequate oral nutritional intake E63.9 Wide-complex tachycardia I47.2 Supratherapeutic INR R79.1 H/O deep venous thrombosis Z86.718 H/O aortic valve replacement with porcine valve Z95.3 Seizures R56.9 Normal pressure hydrocephalus G91.2 History of stroke Z86.73 At risk for aspiration Z91.89 Down syndrome Q90.9 Dementia G30.0; F02.80 Alzheimer's disease onset: early-onset Dementia behavioral disturbance: without behavioral disturbance Dementia type: Alzheimer's Non-verbal learning disorder F81.89 DNR (do not resuscitate) Z66
== END 2022-07-08 22:30 | disposition expired ==
LOC: ER 14:09 → MEDSURG 16:42 → ICU 07-03 23:36
PROVIDERS: Internal Medicine; Internal Medicine Cardiovascular Disease; Student in an Organized Health Care Education/Training Program; Admitting Provider Internal Medicine; Emergency Provider Family Medicine; PCP Family Medicine; Visit Provider Hospitalist
DX: I50.23 Acute on chronic systolic (congestive) heart failure (principal); I21.A1 Myocardial infarction type 2; J69.0 Pneumonitis due to inhalation of food and vomit; I47.2 Ventricular tachycardia; G91.2 (Idiopathic) normal pressure hydrocephalus; E87.1 Hypo-osmolality and hyponatremia; Q90.9 Down syndrome, unspecified; Z95.3 Presence of xenogenic heart valve; Z86.73 Personal history of transient ischemic attack (TIA), and cerebral infarction without residual deficits; R56.9 Unspecified convulsions; Z66 Do not resuscitate; I25.10 Atherosclerotic heart disease of native coronary artery without angina pectoris; Z95.1 Presence of aortocoronary bypass graft; Z86.718 Personal history of other venous thrombosis and embolism; R79.1 Abnormal coagulation profile; G30.0 Alzheimer's disease with early onset; F02.80 Dementia in other diseases classified elsewhere, unspecified severity, without behavioral disturbance, psychotic disturbance, mood disturbance, and anxiety; I95.9 Hypotension, unspecified; R13.10 Dysphagia, unspecified; Z51.5 Encounter for palliative care; E87.6 Hypokalemia
CPT/HCPCS: 36415; 36600; 51702; 71045; 71250; 74176; 80048; 80051; 80053; 80185; 80202; 81001; 81003; 82330; 82805; 83605; 83735; 83880; 84100; 84132; 84145; 84443; 84484; 85025; 85378; 85610; 86403; 87040; 87426; 87449; 87635; 87641; 93005; 93306; 94660; 94664; 96365; 96372; 96375; 99291; C8924; C9113; J0282; J1165; J1644; J1650; J1885; J1940; J2060; J2543; J3370; J3475; J3480; J3490; J7060; Q9956